=== PATIENT | female | born 1940 | race African-American/Black ===

== ENCOUNTER 2017-08-24 00:09 | Observation (INO) | payer MEDICARE, MEDICAID ==
[2017-08-24 01:11] LABS: Hemoglobin 10.9 g/dL (12.0-16.0); Mean Corpuscular HGB CONC 31.8 g/dL (32.0-36.0); Mean Corpuscular Hemoglobin 22.8 pg (27.0-31.0); Mean Corpuscular Volume 71.8 fl (81.0-99.0); Mean Platelet Volume 9.8 fL (7.4-10.4); Platelet Count 306 thou/uL (130-400); RBC Distribution Width 16.1 % (11.5-14.5); Red Blood Cell (RBC) Count 4.76 mill/uL (4.20-5.40); White Blood Cell (WBC) Count 9.6 thou/uL (4.8-10.8)
[2017-08-24 01:20] LABS: ALT (SGPT) 11 U/L (8-55); AST (SGOT) 15 U/L (5-34); Albumin 4.3 g/dL (3.4-4.8); Alkaline Phosphatase 69 U/L (40-150); Anion Gap 12 mmol/L (10-20); BUN (Urea Nitrogen) 5 mg/dL (9.8-20.1); Bilirubin, Total 0.4 mg/dL (0.2-1.2); Calc. Creatinine Clearance 0 mL/min (70-130); Calcium 8.9 mg/dL (7.8-10.44); Carbon Dioxide 28 mmol/L (23-31); Chloride 100 mmol/L (98-107); Estimated GFR-MDRD Greater than 90; Globulin 2.8 g/dL (2.4-3.5); Glucose 144 mg/dL (83-110); Potassium 3.6 mmol/L (3.5-5.1); Protein, Total 7.1 g/dL (6.0-8.3); Sodium 136 mmol/L (136-145)
[2017-08-24 01:25] LABS: CKMB 1.8 ng/mL (0-6.6); Troponin I Less than 0.010 ng/mL (< 0.028)
[2017-08-24 01:26] LABS: #Basophils 0.2 thou/uL (0.0-0.2); #Lymphocytes 2.8 thou/uL (1.20-3.40); #Monocytes 0.7 thou/uL (0.11-0.59); #Neutrophils 5.9 thou/uL (1.40-6.50); %Basophils 1.7 % (0.0-1.0); %Eosinophils 0.3 % (0.0-10.0); %Lymphocytes 29.5 % (21.0-51.0); %Monocytes 7.4 % (0.0-10.0); %Neutrophils 61.1 % (42.0-75.0); Hypochromia SLIGHT = 6-15 cells (100X) (0-5/hpf); MDiff Complete? YES; Microcytosis SLIGHT = 6-15 cells (100X) (0-5/hpf); Target Cells SLIGHT = 2-5 cells (100X) (0-1/hpf)
[2017-08-24] MEDS ORDERED: Nitroglycerin 2% Ointment 1 INCH/1 GM Packet ONE (02:30)
[2017-08-24] MEDS ORDERED: Ondansetron HCl/PF 4 MG/2 ML Vial IVP PRN (04:08)
[2017-08-24] MEDS ORDERED: Acetaminophen 325 MG TAB PO PRN ×2 (04:08→08:42)
[2017-08-24] MEDS ORDERED: Ondansetron ODT 4 MG TAB SL PRN (04:08)
[2017-08-24 05:50] LABS: Troponin I 0.012 ng/mL (< 0.028)
[2017-08-24] MEDS: Furosemide 40 MG/4 ML VIAL SLOW IVP SCH ×2 (06:04→14:07)
[2017-08-24 07:55] LABS: Troponin I 0.022 ng/mL (< 0.028)
[2017-08-24] MEDS ORDERED: Aspirin 325 MG TAB PO SCH (08:00)
--- NOTE | 2017-08-24 08:35 | RAD ---
CHEST 1 VIEW: HISTORY: A 77-year-old female with palpitations and shortness of breath for 1 hour. COMPARISON: 12/10/16. FINDINGS: Monitor leads overlie the chest. Atherosclerosis of the aorta. Old granulomatous disease. No confl uent pneumonia, overt edema, or pleural effusion. IMPRESSION: Stable mild chronic changes. No acute intrathoracic disease. POS: [facility]
[2017-08-24] MEDS ORDERED: Bisacodyl 5 MG TAB PO PRN (08:42)
[2017-08-24] MEDS ORDERED: Acetaminophen 650 MG Suppository PR PRN (08:42)
[2017-08-24] MEDS ORDERED: HumaLOG 300 UNITS/3 ML VIAL SC PRN (08:46)
[2017-08-24] MEDS ORDERED: Dextrose 50% Abboject 50 ML SYRINGE SLOW IVP PRN (08:46)
[2017-08-24] MEDS ORDERED: Dextrose 5% in Water 1,000 ML IV PRN (08:46)
[2017-08-24] MEDS ORDERED: PROVENTIL INHALER 6.7 G (200 INHALATIONS) INH PRN (08:47)
[2017-08-24] MEDS ORDERED: Acetaminophen 500 MG TAB PO PRN (08:47)
[2017-08-24] MEDS ORDERED: Nitroglycerin 0.4 MG TAB (25 Tab Bottle) SL PRN (08:47)
[2017-08-24] MEDS ORDERED: Albuterol Sulfate 2.5 mg/3 ml Neb NEB PRN (08:47)
[2017-08-24] MEDS ORDERED: Loratadine 10 MG TAB PO PRN (08:47)
[2017-08-24] MEDS ORDERED: Estradiol 0.01% Vaginal Cream 42.5 gm Tube VAG PRN (08:47)
[2017-08-24] MEDS ORDERED: Calcium Carbonate + Vit D 1 TAB PO SCH (09:00)
[2017-08-24] MEDS ORDERED: Azelastine 137 MCG/Spray 30 ML NS SCH (09:00)
[2017-08-24] MEDS ORDERED: Meclizine HCl 12.5 MG TAB PO SCH (09:00)
[2017-08-24] MEDS ORDERED: Enoxaparin Sodium 40 MG/0.4 ML SYRINGE SC SCH (09:00)
[2017-08-24] MEDS ORDERED: Nitroglycerin 2% Ointment 1 INCH/1 GM Packet TOP SCH (10:00)
[2017-08-24] MEDS ORDERED: Aggrenox 200-25mg CAP PO SCH ×2 (11:00→21:00)
[2017-08-24] MEDS ORDERED: Gabapentin 100 MG CAP PO SCH ×2 (12:00→21:00)
--- NOTE | 2017-08-24 12:57 | HP ---
PRIMARY CARE PHYSICIAN: Giovanny Peguero M.D. CHIEF COMPLAINT: Palpitations. HISTORY OF PRESENT ILLNESS: Ms. Pizarro is a pleasant 77-year-old lady who was seen at [facility] on 08/24/2017. She reports that she was woken up from her sleep around 2310 hours last night because of palpitations . She reports shortness of breath accompanying the palpitations. She also reports chest discomfort from the palpitations. She is unable to describe the chest discomfort further. She reports that the palpitations continued for several hours and resolved after she came to the emergency room. REVIEW OF SYSTEMS: The following complete review of systems was negative, unless otherwise mentioned in the HPI or below: Constitutional: Weight loss or gain, ability to conduct usual activities. Skin: Rash, itching. Eyes: Double vision, pain. ENT/Mouth: Nose bleeding, neck stiffness, pain, tenderness. Cardiovascular: Palpitations, dyspnea on exertion, orthopnea. Respiratory: Shortness of breath, wheezing, cough, hemoptysis, fever or night sweats. Gastrointestinal: Poor appetite, abdominal pain, heartburn, nausea, vomiting, constipation, or diarr hea. Genitourinary: Urgency, frequency, dysuria, nocturia. Musculoskeletal: Pain, swelling. Neurologic/Psychiatric: Anxiety, depression. Allergy/Immunologic: Skin rash, bleeding tendency. PAST MEDICAL HISTORY: Significant for hypertension, dyslipidemia, Alzheimer's dementia, cerebrovascu lar accident, peripheral vascular disease, peripheral neuropathy, chronic normocytic anemia, osteoart hritis, asthma, TIA and chronic diastolic heart failure. PAST SURGICAL HISTORY: Appendectomy and cataract surgery. PSYCHIATRIC HISTORY: Anxiety and depression. SOCIAL HISTORY: The patient denies tobacco use, alcohol use or recreational drug use. FAMILY HISTORY: Significant for diabetes mellitus in her mother. ALLERGIES: CYMBALTA, LATEX, NATURAL RUBBER, PREDNISONE, and TRAMADOL. CURRENT MEDICATIONS: Include Tylenol Extra Strength 500 mg daily, albuterol 2.5 mg nebulizers every 6 hours as needed, amlodipine 5 mg at bedtime, Aggrenox 25/200 mg 1 capsule 2 times a day, atorvastat in 20 mg at bedtime, azelastine 1 spray to each naris daily, Caltrate 600 one tablet daily, Dexilant 60 mg at bedtime, Flonase nasal spray 1-2 sprays to each nostril daily, Advair 1 puff 2 times a day, Lasix 40 mg daily 3 times a week, gabapentin 100 mg 3 times a day and 200 mg at bedtime, loratadine 1 0 mg daily, meclizine 25 mg daily, Singulair 10 mg at bedtime, Nitrostat p.r.n., nortriptyline 10 mg at bedtime, Pataday 1 drop to each eye 2 times a day, MiraLax 17 grams daily, triamcinolone 1 spray t o each naris daily. PHYSICAL EXAMINATION: GENERAL: On examination, Ms. Pizarro is awake and alert, not in acute distress. VITAL SIGNS: Blood pressure is 155/67, pulse is 67. She is breathing at rate of 16 and saturating 9 6% on room air. She is afebrile. EYES: No scleral icterus. No conjunctival pallor. ENT: Moist mucosal membranes, no oropharyngeal erythema or exudates. NECK: Supple, nontender, normal range of movement. Trachea is midline. RESPIRATORY: Accessory muscles of breathing are not active. Chest wall movements are symmetric bila terally. LUNGS: Clear to auscultation without wheeze, rhonchi or crepitations. CARDIOVASCULAR: S1 and S2 are heard, regular. LUNGS: Peripheral pulses palpable. No carotid bruit, no pericardial rub. ABDOMEN: Soft, nontender, bowel sounds are heard. No hepatomegaly, no splenomegaly. NEUROLOGIC: Cranial nerves II-XII are intact. Deep tendon reflexes are 2+. MUSCULOSKELETAL: Power is 5/5 in all 4 extremities. SKIN: No rashes or subcutaneous nodules. PSYCHIATRIC: Normal mood, normal affect, patient is oriented to person, place and time. LYMPHATIC: No cervical lymphadenopathy. IMAGING DATA AND LABORATORY DATA: Ms. Pizarro's labs and investigations were reviewed. I reviewed he r electrocardiogram, which shows normal sinus rhythm, no ST changes to suggest an acute coronary synd dale. I also reviewed her chest x-ray, which does not show any pulmonary infiltrates. She has a nor mal white count, microcytic anemia with hemoglobin 10.9, normal platelet count, D-dimer less than 0.2 7. Unremarkable comprehensive metabolic profile, normal BNP of 10.9 and troponin I that is negative x3. ASSESSMENT AND PLAN: Ms. Pizarro is a pleasant 77-year-old lady who was seen at [facility] on 04/23/2018. Her problem list includes: 1. Palpitations: No arrhythmia detected on telemetry monitoring at this point. We will check TSH t o rule out hyperthyroidism. We will continue to monitor on telemetry. 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 2. Chest discomfort: Patient is unable to describe this chest discomfort. She reports having her l ast stress test a year ago. We will obtain a stress test during this hospitalization. 3. Diabetes mellitus: Accu-Cheks, insulin sliding scale, continue home medications. 4. Congestive heart failure: Stable, continue furosemide. 5. Hypertension: Monitor vital signs and titrate antihypertensives as needed. 6. Dyslipidemia: Continue home medications including statin. Many thanks for allowing me to participate in your patient's care. Please feel free to contact me wi th any questions or concerns. LEVEL OF RISK: High. LEVEL OF COMPLEXITY: High.
[2017-08-24 13:22] VITALS: TEMP 97.6
[2017-08-24] MEDS ORDERED: Regadenoson 0.4 MG/5 ML SYRINGE ONE (13:47)
--- NOTE | 2017-08-24 15:54 | NM ---
CARDIAC SPECT WITH EF AND WALL MOTION: HISTORY: A 77-year-old female with palpitations, chest discomfort, as well as shortness of breath. History of CT, congestive heart failure, hyperlipidemia, diabetes mellitus, hypertension, peripheral vascular d isease, and asthma. A LexiScan sestamibi study is performed. The patient was injected with 28.3 mCi Technetium 99m sestamibi intravenously for stress images the p atient and 10.0 mCi Technetium 99m sestamibi intravenously for resting images. Multiple SPECT images in the short axis, vertical long axis, and horizontal long axis demonstrate no scan evidence for infarct or ischemia. TID 1.09. LHR 0.34. EDV 55 mL. EF is 82%. MYOCARDIAL PERFUSION WALL MOTION: Wall motion is normal. IMPRESSION: No scan evidence for overt infarct or ischemia. POS: [facility]
[2017-08-24 16:06] VITALS: BP 142/66
[2017-08-24] MEDS ORDERED: Mometasone/Formoterol 120 PUFF INHALER INH SCH (18:30)
[2017-08-24] MEDS ORDERED: Amlodipine 5 MG TAB PO SCH (21:00)
[2017-08-24] MEDS ORDERED: Atorvastatin Calcium 20 MG TAB PO SCH (21:00)
[2017-08-24] MEDS ORDERED: Nortriptyline 10 MG CAP PO SCH (21:00)
[2017-08-24] MEDS ORDERED: Montelukast Sodium 10 mg Tablet PO SCH (21:00)
[2017-08-24] MEDS ORDERED: Ketotifen Fumarate 0.025% Ophth Soln 5 ml Bottle EA EYE SCH (21:00)
--- NOTE | 2017-08-25 01:22 | DIS ---
PRIMARY CARE PHYSICIAN: Giovanny Peguero M.D. DATE OF ADMISSION: 08/24/2017 DATE OF DISCHARGE: 08/24/2017 DISCHARGE DIAGNOSES: 1. Chest discomfort, resolved. 2. Palpitations, resolved. HOSPITAL COURSE: Ms. Pizarro is a pleasant 77-year-old lady who was admitted to [facility] on 08/24/2017 for palpitations and chest discomfort. Please refer to my history and pro brock note from 08/24/2017 for further information. She had normal troponins. She had a normal TSH. She did not have a recurrence of chest discomfort or palpitations. There were no arrhythmias on te lemetry monitoring. She had a nuclear stress test, which did not reveal any evidence for infarct or ischemia. Her left ventricular ejection fraction was 82%. She is being discharged home in a stable condition. She is advised to follow up with her primary car e physician as well as with her anesthetist. Many thanks for allowing me to participate in your patient's care. Please feel free to contact me wi th any questions or concerns. DISCHARGE DESTINATION: Home.
[2017-08-25] MEDS ORDERED: Fluticasone Propionate Nasal Spray 16 gm Bottle NASAL SCH (09:00)
[2017-08-25] MEDS ORDERED: Polyethylene Glycol 3350 17 GM Packet PO SCH (09:00)
[2017-08-26] MEDS ORDERED: Furosemide 40 MG TAB PO SCH (09:00)
== END 2017-08-24 16:56 | disposition home or self-care (01) ==
LOC: ERS 00:09 → 2SW 02:45
PROVIDERS: ADMIT Hospitalist; ATTEND Hospitalist
DX: R07.89 Other chest pain (principal); R00.2 Palpitations; E78.5 Hyperlipidemia, unspecified; G30.9 Alzheimer's disease, unspecified; F02.80 Dementia in other diseases classified elsewhere, unspecified severity, without behavioral disturbance, psychotic disturbance, mood disturbance, and anxiety; D64.9 Anemia, unspecified; M19.90 Unspecified osteoarthritis, unspecified site; J45.909 Unspecified asthma, uncomplicated; I11.0 Hypertensive heart disease with heart failure; I50.32 Chronic diastolic (congestive) heart failure; E11.51 Type 2 diabetes mellitus with diabetic peripheral angiopathy without gangrene; E11.42 Type 2 diabetes mellitus with diabetic polyneuropathy; Z79.02 Long term (current) use of antithrombotics/antiplatelets; Z79.51 Long term (current) use of inhaled steroids; Z79.890 Hormone replacement therapy; Z79.899 Other long term (current) drug therapy; Z88.5 Allergy status to narcotic agent; Z88.8 Allergy status to other drugs, medicaments and biological substances; Z91.040 Latex allergy status; Z98.49 Cataract extraction status, unspecified eye; Z90.49 Acquired absence of other specified parts of digestive tract; Z86.73 Personal history of transient ischemic attack (TIA), and cerebral infarction without residual deficits
CPT/HCPCS: 71045; 78452; 82553; 82962; 83880; 84484 ×2; 85379; 93005; 93017; 94760; 96374; 96376; 99285; A9500; G0378; 36415; 36416; 80053; 84443; 85025; J1940; J2785

== ENCOUNTER 2017-09-15 01:43 | Emergency (ER) | payer MEDICARE, MEDICAID ==
[2017-09-15 02:20] LABS: #Basophils 0.1 thou/uL (0.0-0.2); #Eosinphils 0.1 thou/uL (0.0-0.7); #Lymphocytes 2.5 thou/uL (1.20-3.40); #Monocytes 0.6 thou/uL (0.11-0.59); #Neutrophils 5.6 thou/uL (1.40-6.50); %Basophils 0.9 % (0.0-1.0); %Eosinophils 0.6 % (0.0-10.0); %Lymphocytes 28.4 % (21.0-51.0); %Neutrophils 63.1 % (42.0-75.0); Hemoglobin 10.8 g/dL (12.0-16.0); Mean Corpuscular HGB CONC 32.4 g/dL (32.0-36.0); Mean Corpuscular Hemoglobin 23.1 pg (27.0-31.0); Mean Corpuscular Volume 71.3 fl (81.0-99.0); Mean Platelet Volume 8.9 fL (7.4-10.4); Platelet Count 325 thou/uL (130-400); RBC Distribution Width 15.8 % (11.5-14.5); Red Blood Cell (RBC) Count 4.66 mill/uL (4.20-5.40); White Blood Cell (WBC) Count 8.9 thou/uL (4.8-10.8)
[2017-09-15 02:42] LABS: ALT (SGPT) 9 U/L (8-55); AST (SGOT) 16 U/L (5-34); Albumin 4.5 g/dL (3.4-4.8); Alkaline Phosphatase 61 U/L (40-150); Anion Gap 9 mmol/L (10-20); BUN (Urea Nitrogen) 8 mg/dL (9.8-20.1); Bilirubin, Total 0.4 mg/dL (0.2-1.2); CK (CPK) 127 U/L (29-168); Calc. Creatinine Clearance 0 mL/min (70-130); Calcium 9.5 mg/dL (7.8-10.44); Carbon Dioxide 32 mmol/L (23-31); Chloride 98 mmol/L (98-107); Estimated GFR-MDRD 87; Globulin 2.8 g/dL (2.4-3.5); Glucose 121 mg/dL (83-110); Potassium 3.9 mmol/L (3.5-5.1); Protein, Total 7.3 g/dL (6.0-8.3); Sodium 135 mmol/L (136-145)
[2017-09-15 02:52] LABS: CKMB 1.8 ng/mL (0-6.6); Troponin I Less than 0.010 ng/mL (< 0.028)
--- NOTE | 2017-09-15 08:36 | RAD ---
PORTABLE CHEST 1 VIEW: Date: 09/15/17 Time: 0209 hours HISTORY: Dyspnea. Dizziness. Tachycardia. FINDINGS: Comparison made with exam of 09/13/17. The heart size is normal. The aorta is tortuous. The lungs are expanded without focal areas of consol idation, pneumothorax, or pleural effusions. IMPRESSION: No radiographic evidence of acute cardiopulmonary process. POS: [facility]
--- NOTE | 2017-09-21 15:36 | EKG ---
Test Reason : Blood Pressure : / mmHG Vent. Rate : 074 BPM Atrial Rate : 074 BPM P-R Int : 142 ms QRS Dur : 072 ms QT Int : 384 ms P-R-T Axes : 067 004 046 degrees QTc Int : 426 ms Normal sinus rhythm Normal ECG Confirmed by DELMIS MCCLAIN, REKHA Lyles ([id number]), magazine editor MIRNA BLAND ([id number]) on 09/21/2017 3:36:36 PM Referred By: Confirmed By:REKHA BENITES MD
== END 2017-09-15 03:09 | disposition home or self-care (01) ==
LOC: ERS 01:43
DX: R00.2 Palpitations (principal); E11.40 Type 2 diabetes mellitus with diabetic neuropathy, unspecified; E78.5 Hyperlipidemia, unspecified; M19.90 Unspecified osteoarthritis, unspecified site; J45.909 Unspecified asthma, uncomplicated; F41.9 Anxiety disorder, unspecified; F32.9 Major depressive disorder, single episode, unspecified; Z87.891 Personal history of nicotine dependence; Z79.899 Other long term (current) drug therapy; Z86.73 Personal history of transient ischemic attack (TIA), and cerebral infarction without residual deficits
CPT/HCPCS: 36415; 71045; 80053; 82553; 83880; 84484; 85025; 93005

== ENCOUNTER 2018-01-16 08:59 | Outpatient (CLI) | payer MEDICARE, MEDICAID ==
--- NOTE | 2018-01-16 10:38 | RAD ---
TWO VIEWS CHEST: Comparison: 01-17-17 History: Dyspnea. FINDINGS: Two views of the chest shows normal sized cardiomediastinal silhouette with atherosclerotic calcific ations in the aorta. There is no evidence of consolidation, mass, or pleural effusion. The bones are unremarkable. IMPRESSION: No evidence of acute cardiopulmonary disease. POS: [facility]
== END 2018-01-16 09:00 | disposition home or self-care (01) ==
LOC: RAD 08:59
PROVIDERS: ATTEND Internal Medicine Critical Care Medicine
DX: R06.00 Dyspnea, unspecified (principal)
CPT/HCPCS: 71046

== ENCOUNTER 2018-12-10 06:00 | Emergency (ER) | payer MEDICARE, MEDICAID ==
[2018-12-10] MEDS ORDERED: Ondansetron PF 4 MG/2 ML Vial ONE (06:39)
[2018-12-10] MEDS ORDERED: Morphine 4 MG/ML VIAL ONE (06:39)
[2018-12-10 06:48] LABS: #Basophils 0.1 thou/uL (0.0-0.2); #Lymphocytes 1.9 thou/uL (1.20-3.40); #Monocytes 0.8 thou/uL (0.11-0.59); #Neutrophils 8.4 thou/uL (1.40-6.50); %Basophils 0.8 % (0.0-1.0); %Eosinophils 0.4 % (0.0-10.0); %Lymphocytes 16.8 % (21.0-51.0); Mean Corpuscular HGB CONC 31.8 g/dL (32.0-36.0); Mean Corpuscular Hemoglobin 22.3 pg (27.0-31.0); Mean Corpuscular Volume 70.2 fL (78.0-98.0); Mean Platelet Volume 8.6 fL (7.4-10.4); Platelet Count 364 thou/uL (130-400); RBC Distribution Width 15.7 % (11.5-14.5); Red Blood Cell (RBC) Count 4.93 mill/uL (4.20-5.40); White Blood Cell (WBC) Count 11.1 thou/uL (4.8-10.8)
[2018-12-10 07:01] LABS: ALT (SGPT) 8 U/L (8-55); AST (SGOT) 18 U/L (5-34); Albumin 4.6 g/dL (3.4-4.8); Alkaline Phosphatase 61 U/L (40-150); Anion Gap 14 mmol/L (10-20); BUN (Urea Nitrogen) 8 mg/dL (9.8-20.1); Bilirubin, Total 0.6 mg/dL (0.2-1.2); Calc. Creatinine Clearance 0 mL/min (70-130); Calcium 9.7 mg/dL (7.8-10.44); Carbon Dioxide 27 mmol/L (23-31); Chloride 92 mmol/L (98-107); Estimated GFR-MDRD 80; Glucose 111 mg/dL (83-110); Lipase 5 U/L (8-78); Potassium 4.3 mmol/L (3.5-5.1); Protein, Total 7.6 g/dL (6.0-8.3); Sodium 129 mmol/L (136-145)
[2018-12-10 07:22] LABS: Hypochromia SLIGHT = 6-15 cells (100X) (0-5/hpf); Lymphocytes 29 % (21-51); MDiff Complete? YES; Microcytosis SLIGHT = 6-15 cells (100X) (0-5/hpf); Monocytes 3 % (0-10); Neutrophil 67 % (42-75); Platelet Morphology Comment Appears Adequate; Polychromasia SLIGHT = 2-3 cells (100X) (0-2/hpf); Reactive Lymphocytes 1 % (0-10)
--- NOTE | 2018-12-10 07:44 | ULT ---
GALLBLADDER ULTRASOUND: CLINICAL HISTORY: Pain. FINDINGS: No focal hepatic lesion. No acute gallbladder pathology. Navarro sign is reported as negative. The c ommon duct is normal at 4 mm. There is no ascites. IMPRESSION: No acute gallbladder pathology. POS: [facility]
--- NOTE | 2018-12-10 07:58 | RAD ---
CHEST ONE VIEW: HISTORY: Cough. COMPARISON: 09/15/2017 FINDINGS: Heart size is within normal limits. Old granulomatous disease. No confluent pneumonia, overt edema, or pleural effusion. IMPRESSION: 1. No acute intrathoracic disease. 2. Old granulomatous disease. 3. Atherosclerosis of the aorta. POS: [facility]
[2018-12-10 08:03] LABS: Bilirubin Negative (Negative); Blood, Urine Negative (Negative); Clarity CLEAR (Clear); Glucose, Urine (Dipstick) Negative (Negative); Leukocyte Small (Negative); Nitrite Negative (Negative); Protein, Urine (Dipstick) Negative (Neg-Trace); Specific Gravity, Urine 1.006 (1.002-1.036); Urobilinogen 0.2 mg/dL (0.2-1.0)
[2018-12-10 08:05] LABS: Bacteria/HPF None Seen HPF (None Seen); Hyaline Casts/LPF 0-3 HYALINE CAST LPF (0-3 Hyaline); RBC/HPF 0-3 HPF (0-3); Squamous Epithelial None Seen HPF (0-3); WBC/HPF 0-3 HPF (0-3)
--- NOTE | 2018-12-10 08:30 | CT ---
CT abdomen with contrast CT pelvis with contrast: DATE: 12/10/2018 HISTORY: 78-year-old female with right upper quadrant abdominal pain COMPARISON: Noncontrast CT 03/12/2015 TECHNIQUE: IV injection of iodinated contrast media:Administered Oral contrast media:Not administered FINDINGS: Again noted is the large atheromatous plaque in the proximal abdominal aorta at the level of the righ t renal artery origin and slightly inferior to the SMA takeoff, causing approximately 60-75% stenosis of the lumen Lung bases demonstrate no consolidation or pleural effusion. No major pathology of liver, kidneys, adrenals, pancreas, spleen, or urinary bladder. Appendix is latrell gically absent by history. Large amount of stool in the transverse colon and ascending colon, including hepatic flexure. Sigmoid colon and descending colon are decompressed. No signs of diverticu litis. No small bowel dilation. No pneumoperitoneum or ascites. No gallbladder mural thickening or pericholecystic edema. No major interval change. IMPRESSION: 1. Moderately large volume of colonic stool. 2. High-grade stenosis of proximal abdominal aorta due to large, calcified atheromatous plaque. 3. Status post appendectomy. 4. Otherwise no acute findings
[2018-12-10] MEDS ORDERED: ISOVUE-370 76%-LOCM 1 ML ONE (11:43)
== END 2018-12-10 09:00 | disposition home or self-care (01) ==
LOC: ERS 06:00
DX: R10.11 Right upper quadrant pain (principal); Z86.73 Personal history of transient ischemic attack (TIA), and cerebral infarction without residual deficits; E11.9 Type 2 diabetes mellitus without complications; E78.5 Hyperlipidemia, unspecified; I11.0 Hypertensive heart disease with heart failure; I50.9 Heart failure, unspecified; J45.909 Unspecified asthma, uncomplicated; F41.9 Anxiety disorder, unspecified; F32.9 Major depressive disorder, single episode, unspecified; Z87.891 Personal history of nicotine dependence; Z79.899 Other long term (current) drug therapy; Z79.82 Long term (current) use of aspirin; Z79.51 Long term (current) use of inhaled steroids
CPT/HCPCS: 71045; 74177; 76705; 80053; 81003; 81015; 83690; 83880; 84484; 85025; 93005; 96374; 96375; J2270; J2405; Q9966

== ENCOUNTER 2019-01-03 15:17 | Inpatient (IN) | payer MEDICARE, MEDICAID ==
--- NOTE | 2019-01-03 16:08 | RAD ---
SINGLE VIEW OF THE CHEST: 01/03/19 COMPARISON: 01/02/19 HISTORY: Sepsis with fever and hypotension. FINDINGS: Single view of the chest shows a normal sized cardiomediastinal silhouette with atherosclerotic calci fications in the aorta. There is obscurity of the left hemidiaphragm which likely represents either atelectasis or an infiltrate in the left lower lobe. IMPRESSION: Left lower lobe atelectasis versus infiltrate. POS: [facility]
[2019-01-03] MEDS ORDERED: Acetaminophen 500 MG TAB ONE (16:15)
[2019-01-03 16:16] LABS: Hemoglobin 10.5 g/dL (12.0-16.0); Mean Corpuscular HGB CONC 33.4 g/dL (32.0-36.0); Mean Platelet Volume 8.9 fL (7.4-10.4); Platelet Count 274 thou/uL (130-400); RBC Distribution Width 15.5 % (11.5-14.5); Red Blood Cell (RBC) Count 4.54 mill/uL (4.20-5.40); White Blood Cell (WBC) Count 19.6 thou/uL (4.8-10.8)
[2019-01-03 16:22] LABS: Bilirubin Negative (Negative); Blood, Urine Large (Negative); Clarity CLEAR (Clear); Glucose, Urine (Dipstick) Negative (Negative); Leukocyte Negative (Negative); Nitrite Negative (Negative); Protein, Urine (Dipstick) Trace mg/dL (Neg-Trace); Specific Gravity, Urine 1.014 (1.002-1.036); pH, Urine 5.5 (5.0-9.0)
[2019-01-03 16:24] LABS: Bacteria/HPF None Seen HPF (None Seen); Hyaline Casts/LPF 4-6 HYALINE CAST LPF (0-3 Hyaline); Pathc Cast-AUWi Flag 0.68 (0-2.49); RBC/HPF 0-3 HPF (0-3); Squamous Epithelial 0-3 HPF (0-3); WBC/HPF 0-3 HPF (0-3)
[2019-01-03 16:30] LABS: Anisocytosis SLIGHT = 6-15 cells (100X) (0-5/hpf); Band 6 % (5-11); Basophilic Stippling SLIGHT = 1-2 cells (100X) (None Seen); Hypochromia SLIGHT = 6-15 cells (100X) (0-5/hpf); Lymphocytes 7 % (21-51); MDiff Complete? YES; Microcytosis SLIGHT = 6-15 cells (100X) (0-5/hpf); Monocytes 1 % (0-10); Neutrophil 86 % (42-75); Ovalocytes SLIGHT = 2-5 cells (100X) (0-1/hpf); Platelet Morphology Comment Appears Adequate; Polychromasia SLIGHT = 2-3 cells (100X) (0-2/hpf); Target Cells SLIGHT = 2-5 cells (100X) (0-1/hpf); Tear Drops SLIGHT = 2-5 cells (100X) (0-1/hpf)
[2019-01-03 16:37] LABS: Renal Epithelial 0-3 HPF (0-3); Transitional Epithelial 0-3 HPF (0-3)
[2019-01-03 17:09] LABS: ALT (SGPT) 20 U/L (8-55); AST (SGOT) 36 U/L (5-34); Albumin 4.2 g/dL (3.4-4.8); Alkaline Phosphatase 69 U/L (40-150); Anion Gap 15 mmol/L (10-20); BUN (Urea Nitrogen) 21 mg/dL (9.8-20.1); Bilirubin, Total 1.1 mg/dL (0.2-1.2); Calc. Creatinine Clearance 0 mL/min (70-130); Calcium 9.4 mg/dL (7.8-10.44); Carbon Dioxide 23 mmol/L (23-31); Chloride 93 mmol/L (98-107); Estimated GFR-MDRD 25; Globulin 3.1 g/dL (2.4-3.5); Glucose 115 mg/dL (83-110); Potassium 5.1 mmol/L (3.5-5.1); Protein, Total 7.3 g/dL (6.0-8.3); Sodium 126 mmol/L (136-145)
[2019-01-03] MEDS ORDERED: Piperacillin/Tazobactam 4.5 GM VIAL ONE (18:02)
[2019-01-03] MEDS ORDERED: Ondansetron PF 4 MG/2 ML Vial IVP PRN ×2 (19:37→22:04)
[2019-01-03] MEDS ORDERED: Ondansetron ODT 4 MG TAB SL PRN (19:37)
[2019-01-03 20:22] VITALS: BMI 25.3
[2019-01-03 21:22] LABS: Lactic Acid 0.9 mmol/L (0.5-2.2)
[2019-01-03] MEDS ORDERED: hydrALAZINE 20 MG/ML VIAL SLOW IVP PRN (22:04)
[2019-01-03] MEDS ORDERED: Ondansetron ODT 4 MG TAB PO PRN (22:04)
[2019-01-03] MEDS ORDERED: Benzonatate 100 MG CAP PO PRN (22:04)
[2019-01-03] MEDS ORDERED: Mometasone/Formoterol 120 PUFF INHALER INH SCH (23:00)
[2019-01-03] MEDS: Sodium Chloride 0.9% 1,000 ML IV SCH (23:26)
[2019-01-04] MEDS: Acetaminophen 500 MG TAB PO PRN ×2 (04:09→22:03)
--- NOTE | 2019-01-04 04:24 | HP ---
PRIMARY CARE PROVIDER: Dr. Giovanny Peguero. CHIEF COMPLAINT: Cough, shortness of breath, and passing out. HISTORY OF PRESENT ILLNESS: This is a 78-year-old female, who presented to [facility] Emergency Department on 01/02/2019, complaining of increased shortness of breath and was apparently diagnosed with COPD exacerbation and released back home. The patient states she went back home with increased cough, congestion, body aches, fever, and general weakness. The patient also complained of pain in her chest with deep inspiration. The patient felt very weak and went to her bedroom, where apparently she fell across her bed and was discovered by her brother. The patient states she only passed out for a few seconds and came through without complication. The patient denied any new medication exposure, family members with similar symptoms, recent travel history, unilateral weakness, or increasing lower extremity edema. The patient states her last episode of pneumonia was in 2009, and she states her pneumonia vaccination is current. The patient does relate a history of asthma, for which she intermittently takes bronchodilator treatments at home in addition to Advair Diskus inhaler. The patient denies any home use of oxygen, any dietary or medication noncompliance. In the emergency room, the patient underwent general evaluation including chest imaging showing left lower lobe infiltrate. The patient also met sepsis criteria and was placed on Levaquin and Zosyn in addition to intravenous normal saline x500 mL. The patient also received acetaminophen and was transferred to the medical floor for further evaluation. PAST MEDICAL HISTORY: 1. Hypertension. 2. Dyslipidemia. 3. History of TIA. 4. Peripheral vascular disease. 5. Peripheral neuropathy. 6. Chronic normocytic anemia. 7. Osteoarthritis. 8. Asthma. 9. Chronic diastolic dysfunction with preserved ejection fraction of 55% to 60%. PAST SURGICAL HISTORY: 1. Status post appendectomy. 2. Status post cataract removal. PSYCHIATRIC HISTORY: Anxiety and depression. FAMILY HISTORY: Positive for diabetes mellitus in her mother. SOCIAL HISTORY: Resides in [place], [place], in a longterm community. Lives independently, but does receive home health services with [facility] [place]. Ambulates with a cane in the home and a four-wheeled walker out of the home. No recent falls per patient report. No current tobacco, alcohol, or illicit drug use. Remote tobacco use. REVIEW OF SYSTEMS: CONSTITUTIONAL: Negative for weight loss or gain, ability to conduct usual activities. SKIN: Negative for rash, itching. EYES: Negative for double vision, pain. ENT/MOUTH: Negative for nose bleeding, neck stiffness, pain, tenderness. CARDIOVASCULAR: Negative for palpitations, dyspnea on exertion, orthopnea. RESPIRATORY: Negative for wheezing, hemoptysis, fever or night sweats. GASTROINTESTINAL: Negative for poor appetite, abdominal pain, heartburn, nausea, vomiting, constipation, or diarrhea. GENITOURINARY: Negative for urgency, frequency, dysuria, nocturia. MUSCULOSKELETAL: Negative for pain, swelling. NEUROLOGIC/PSYCHIATRIC: Negative for anxiety, depression. ALLERGY/IMMUNOLOGIC: Negative for skin rash, bleeding tendency. ALLERGIES: 1. DONEPEZIL. 2. DULOXETINE. 3. HYDROCHLOROTHIAZIDE. 4. HYDROCODONE. 5. LATEX. 6. PREDNISONE. 7. TRAMADOL. PHYSICAL EXAMINATION: VITAL SIGNS: On admission, blood pressure 113/61, pulse 82, respiratory rate 16, temperature 99.6 degrees Fahrenheit, O2 saturation 92% on room air. GENERAL APPEARANCE: This is a 78-year-old female, alert and oriented x3, pleasant, in no acute distress. HEENT: Pupils are equal, round, reactive to light and accommodation. Extraocular muscles are intact. No scleral icterus. No conjunctival injection. Nares patent. OP is clear. Teeth in fair repair. NECK: Supple. No cervical adenopathy. No thyromegaly. No carotid bruits. No JVD appreciated. Cervical spine with full active and passive range of motion. No meningeal signs noted. CHEST: Diminished breath sounds in the bases bilaterally. Occasional rhonchi in the left lower lobe. CARDIOVASCULAR: S1 and S2 without noted murmur, rub, or gallop. ABDOMEN: Rounded, soft, nontender, and nondistended. Bowel sounds are positive in all 4 quadrants. There is no hepatosplenomegaly. No abdominal bruits. No rebound or guarding appreciated. EXTREMITIES: Warm and dry with fair turgor. No clubbing, cyanosis, or asymmetric edema appreciated. Pulses palpable distally at the dorsalis pedis, posterior tibial, and popliteal arteries bilaterally. Capillary refill less than 2 seconds. NEUROLOGIC: Cranial nerves 2 through 12 are grossly intact. No focal or lateralizing signs appreciated. PERTINENT LAB AND X-RAY FINDINGS: Sodium 126, potassium 5.1, chloride 93, CO2 of 23, BUN 21, creatinine 2.31, estimated GFR of 25, glucose 115. Lactic acid level ranged between 0.9 to 1.2, calcium 9.4, AST 36, ALT of 20, total bilirubin 1.1. CBC showed a white blood cell count of 19.6, hemoglobin 11, hematocrit 31, MCV 69, platelet count 274, with 86% neutrophils. Urinalysis showed blood with 0 to 3 rbc's per high-power field. Portable chest x-ray dated 01/03/2019 showed left lower lobe infiltrate with associated atelectasis. EKG dated 01/03/2019 by my interpretation shows sinus mechanism with heart rates in the 90s. Attenuated R-waves noted in the precordial leads. Left axis deviation noted. Isolated T-wave inversion in lead V3. ASSESSMENT AND PLAN: 1. Sepsis secondary to pneumonia. The patient will be admitted to the medical floor. The patient meeting sepsis criteria with leukocytosis, fever, with acute kidney injury. We will continue treatment as outlined. 2. We will continue intravenous normal saline 100 mL/h. Lactic acid level negative x2. 3. Bacterial pneumonia, left lower lobe, suspected gram-positive cocci. We will continue cefepime 2 g IV q.12 hours with additional Levaquin 500 mg IV daily. Bronchodilator therapy with DuoNeb. Mucolytics with Robitussin. Oxygen as needed to maintain O2 saturations greater than or equal to 90%. Confirm most recent pneumo vaccination prior to discharge. 4. Acute kidney injury. Continue intravenous normal saline at 100 mL/h. Avoid nephrotoxic agents and limit contrast exposure. Hold home Lasix. 5. Hyponatremia. Appears acute/subacute. We will continue intravenous normal saline at 100 mL/h. Serial sodium monitoring. 6. Chronic microcytic anemia. Appears stable when review of electronic medical record dating back to 2011. No current evidence to suggest acute blood loss. Repeat CBC in the a.m. and monitor hemoglobin trend. 7. Prophylaxis. SCDs while in bed. Pepcid 20 mg p.o. b.i.d. PT evaluation for functional assessment. CODE STATUS: Full. Surrogate medical decision maker is patient's brother. Job ID: [id number]
[2019-01-04 06:12] LABS: Band 15 % (5-11); Elliptocytes SLIGHT = 2-5 cells (100X) (0-1/hpf); Hemoglobin 9.4 g/dL (12.0-16.0); Hypochromia SLIGHT = 6-15 cells (100X) (0-5/hpf); Lymphocytes 5 % (21-51); MDiff Complete? YES; Mean Corpuscular HGB CONC 32.9 g/dL (32.0-36.0); Mean Corpuscular Hemoglobin 22.8 pg (27.0-31.0); Mean Corpuscular Volume 69.4 fL (78.0-98.0); Mean Platelet Volume 9.1 fL (7.4-10.4); Monocytes 5 % (0-10); Neutrophil 75 % (42-75); Platelet Count 246 thou/uL (130-400); Platelet Morphology Comment Appears Adequate; RBC Distribution Width 15.2 % (11.5-14.5); Red Blood Cell (RBC) Count 4.12 mill/uL (4.20-5.40); White Blood Cell (WBC) Count 18.4 thou/uL (4.8-10.8)
[2019-01-04 06:21] LABS: Anion Gap 16 mmol/L (10-20); BUN (Urea Nitrogen) 20 mg/dL (9.8-20.1); Calc. Creatinine Clearance 22 mL/min (70-130); Calcium 8.3 mg/dL (7.8-10.44); Carbon Dioxide 19 mmol/L (23-31); Chloride 98 mmol/L (98-107); Estimated GFR-MDRD 29; Glucose 90 mg/dL (83-110); Potassium 4.8 mmol/L (3.5-5.1); Sodium 128 mmol/L (136-145)
[2019-01-04] MEDS: Mometasone/Formoterol 120 PUFF INHALER INH SCH ×2 (06:44→19:01)
[2019-01-04] MEDS ORDERED: Sodium Chloride 0.65% Nasal 44 ML BOT EA NARE PRN (08:30)
[2019-01-04] MEDS ORDERED: Loratadine 10 MG TAB PO PRN (08:30)
[2019-01-04] MEDS ORDERED: Senokot S 8.6-50 MG TAB PO PRN (08:30)
[2019-01-04] MEDS ORDERED: Temazepam 15 MG CAP PO PRN (08:30)
[2019-01-04] MEDS ORDERED: Bisacodyl 10 MG SUPP PR PRN (08:30)
[2019-01-04] MEDS ORDERED: Loperamide HCl 2 MG CAP PO PRN (08:30)
[2019-01-04] MEDS ORDERED: Cepastat Lozenges 1 LOZ PO PRN (08:30)
[2019-01-04] MEDS ORDERED: Diabetic Tussin 200 MG/10 ML UDCUP PO PRN (08:30)
[2019-01-04] MEDS ORDERED: Meclizine HCl 12.5 MG TAB PO PRN (08:31)
[2019-01-04] MEDS ORDERED: Nitroglycerin 0.4 MG TAB (25 Tab Bottle) SL PRN (08:31)
[2019-01-04] MEDS ORDERED: Famotidine 20 MG TAB PO SCH (09:00)
[2019-01-04] MEDS: Aspirin 81 mg Enteric Coated Tablet PO SCH (09:05)
[2019-01-04] MEDS: Gabapentin 100 MG CAP PO SCH ×4 (09:05→20:24)
[2019-01-04] MEDS: Cefepime 2 GM in Sodium Chloride 0.9% 100 ML IVPB SCH ×2 (09:06→20:25)
[2019-01-04] MEDS: Polyethylene Glycol 3350 17 GM Packet PO SCH (09:08)
[2019-01-04] MEDS: Fluticasone Propionate Nasal Spray 16 gm Bottle NASAL SCH (09:09)
[2019-01-04] MEDS: Diltiazem HCl CD 300 mg Capsule PO SCH (09:12)
[2019-01-04] MEDS: Aggrenox 200-25mg CAP PO SCH ×2 (09:12→20:25)
[2019-01-04] MEDS: Azelastine 137 MCG/Spray 30 ML NS SCH ×2 (09:13→20:23)
[2019-01-04] MEDS: Sodium Chloride 0.9% 1,000 ML IV SCH ×2 (09:19→20:25)
--- NOTE | 2019-01-04 12:02 | PDOC.PN ---
- Subjective Encounter Start Date: 01/04/19 Encounter Start Time: 09:45 -: old records requested/rev Patient seen and examined. No new complaints. No overnight events - Objective Resuscitation Status - Order Detail: 01/03/19 21:55 Resuscitation Status Routine Resuscitation Status: FULL: Full Resuscitation MAR Reviewed: Yes Vital Signs & Weight: Vital Signs (12 hours) Temp Pulse Resp BP Pulse Ox 01/04/19 10:23 100 12 01/04/19 09:12 89 01/04/19 07:59 98.9 F 89 16 123/67 98 01/04/19 07:45 94 L 01/04/19 06:46 90 12 01/04/19 04:15 74 16 94 L 01/04/19 04:00 102.0 F H 99 16 125/51 L 91 L Weight Weight 134 lb 1.6 oz I&O: 01/03/19 01/04/19 01/05/19 06:59 06:59 06:59 Intake Total 1580 Balance 1580 Result Diagrams: 01/04/19 05:24 01/04/19 05:24 Additional Labs: Accuchecks 01/04/19 01/03/19 04:05 21:35 POC Glucose 163 H 104 Radiology Reviewed by me: Yes Phys Exam - Physical Examination Constitutional: NAD HEENT: PERRLA, moist MMs, sclera anicteric Neck: no JVD, supple Respiratory: no wheezing, no rhonchi left base rales Cardiovascular: RRR, no significant murmur, no rub Gastrointestinal: soft, non-tender, no distention, positive bowel sounds Musculoskeletal: no edema, pulses present Neurological: non-focal, normal sensation, moves all 4 limbs Lymphatic: no nodes Psychiatric: normal affect, A&O x 3 Skin: no rash, normal turgor Dx/Plan (1) Acute kidney failure Status: Acute (2) Community acquired bacterial pneumonia Code(s): J15.9 - UNSPECIFIED BACTERIAL PNEUMONIA Status: Acute (3) Hyponatremia Code(s): E87.1 - HYPO-OSMOLALITY AND HYPONATREMIA Status: Acute (4) Sepsis with acute organ dysfunction Code(s): A41.9 - SEPSIS, UNSPECIFIED ORGANISM; R65.20 - SEVERE SEPSIS WITHOUT SEPTIC SHOCK Status: Acute (5) Dementia Code(s): F03.90 - UNSPECIFIED DEMENTIA WITHOUT BEHAVIORAL DISTURBANCE Status: Chronic (6) Dyslipidemia Code(s): E78.5 - HYPERLIPIDEMIA, UNSPECIFIED Status: Chronic (7) GERD (gastroesophageal reflux disease) Code(s): K21.9 - GASTRO-ESOPHAGEAL REFLUX DISEASE WITHOUT ESOPHAGITIS Status: Chronic (8) HTN (hypertension) Code(s): I10 - ESSENTIAL (PRIMARY) HYPERTENSION Status: Chronic (9) Iron deficiency anemia Code(s): D50.9 - IRON DEFICIENCY ANEMIA, UNSPECIFIED Status: Chronic - Plan cont current plan of care, continue antibiotics, respiratory therapy * continue cefepime and levaquin * continue IVF * repeat labs tomorrow. * medication reviewed as below * symptomatic treatment Review of Systems - Review of Systems Respiratory: Cough, Shortness of Breath. negative: Dry, Hemoptysis, SOB with Excertion, Pleuritic Pain, Sputum, Wheezing Cardiovascular: negative: chest pain, palpitations, orthopnea, paroxysmal nocturnal dyspnea, edema, light headedness, other Gastrointestinal: negative: Nausea, Vomiting, Abdominal Pain, Diarrhea, Constipation, Melena, Hematochezia, Other Genitourinary: negative: Dysuria, Frequency, Incontinence, Hematuria, Retention , Other Musculoskeletal: negative: Neck Pain, Shoulder Pain, Arm Pain, Back Pain, Hand Pain, Leg Pain, Foot Pain, Other Skin: negative: Rash, Lesions, Dre, Bruising, Other - Medications/Allergies Allergies/Adverse Reactions: Allergies Allergy/AdvReac Type Severity Reaction Status Date / Time donepezil [From Aricept] Allergy Verified 01/04/19 02:50 duloxetine HCl Allergy Verified 01/04/19 02:50 [From Cymbalta] hydrochlorothiazide Allergy Verified 01/04/19 02:50 hydrocodone Allergy Verified 01/04/19 02:50 Latex, Natural Rubber Allergy Verified 01/04/19 02:50 prednisone Allergy Verified 01/04/19 02:50 tramadol Allergy Verified 01/04/19 02:50 Medications: Current Medications Acetaminophen (Tylenol) 1,000 mg PO Q6H PRN PRN Reason: Mild Pain (1-3) Last Admin: 01/04/19 04:09 Dose: 1,000 mg Albuterol/Ipratropium (Duoneb) 3 ml NEB [id number] DIANNE Last Admin: 01/04/19 10:23 Dose: 3 ml Aspirin (Ecotrin) 81 mg PO DAILY [facility] Last Admin: 01/04/19 09:05 Dose: 81 mg Atorvastatin Calcium (Lipitor) 20 mg PO HS [facility] Azelastine HCl (Azelastine) 0 ml NS BID [facility] Last Admin: 01/04/19 09:13 Dose: 1 spr Benzonatate (Tessalon) 100 mg PO Q6H PRN PRN Reason: Cough Bisacodyl (Dulcolax) 10 mg [place] DAILYPRN PRN PRN Reason: Constipation Diltiazem HCl (Cardizem Cd) 300 mg PO DAILY [facility] Last Admin: 01/04/19 09:12 Dose: 300 mg Dipyridamole/Aspirin (Aggrenox) 1 cap PO BID [facility] Last Admin: 01/04/19 09:12 Dose: 1 cap Famotidine (Pepcid) 20 mg PO DAILY [facility] Fluticasone Propionate (Flonase Nasal [place]) 0 gm NASAL DAILY [facility] Last Admin: 01/04/19 09:09 Dose: 1 spr Gabapentin (Neurontin) 200 mg PO HS [facility] Gabapentin (Neurontin) 100 mg PO TID-WM [facility] Last Admin: 01/04/19 09:05 Dose: 100 mg Guaifenesin (Robitussin Sf) 200 mg PO Q4H PRN PRN Reason: Cough Guaifenesin/Dextromethorphan (Robitussin Dm) 15 ml PO Q4H PRN PRN Reason: Cough Hydralazine HCl (Apresoline) 10 mg SLOW IVP Q4H PRN PRN Reason: SBP > 180 and HR < 70 Cefepime HCl 2 gm/ Sodium (Chloride) 100 mls @ 200 mls/hr IVPB Q12HR [facility] Last Admin: 01/04/19 09:06 Dose: 100 mls Levofloxacin 500 mg/ Device 100 mls @ 100 mls/hr IVPB Q24HR [facility] Last Admin: 01/04/19 09:20 Dose: 100 mls Sodium Chloride (Normal Saline 0.9%) 1,000 mls @ 100 mls/hr IV .Q10H [facility] Last Admin: 01/04/19 09:19 Dose: 1,000 mls Loperamide HCl (Imodium) 2 mg PO PRN PRN PRN Reason: Diarrhea/Loose Stools Loratadine (Claritin) 10 mg PO DAILYPRN PRN PRN Reason: Sinus Symptoms Meclizine HCl (Antivert) 25 mg PO DAILYPRN PRN PRN Reason: Dizziness Mometasone Furoate/Formoterol Fumar (Dulera 200 Mcg/5 Mcg Inhaler) 2 puff INH BID-RT [facility] Last Admin: 01/04/19 06:44 Dose: 2 puff Montelukast Sodium (Singulair) 10 mg PO HS [facility] Nitroglycerin (Nitrostat) 0.4 mg SL Q5MIN PRN PRN Reason: Chest Pain Nortriptyline HCl (Pamelor) 10 mg PO HS [facility] Ondansetron HCl (Zofran Odt) 4 mg PO Q6H PRN PRN Reason: Nausea/Vomiting Ondansetron HCl (Zofran) 4 mg IVP Q6H PRN PRN Reason: Nausea/Vomiting Polyethylene Glycol (Miralax) 17 gm PO DAILY [facility] Last Admin: 01/04/19 09:08 Dose: 17 gm Senna/Docusate Sodium (Senokot S) 2 tab PO BID PRN PRN Reason: Constipation Sodium Chloride ([place] Nasal [place] 0.65%) 0 ml EA NARE QIDPRN PRN PRN Reason: Nasal Congestion Temazepam (Restoril) 15 mg PO HSPRN PRN PRN Reason: Insomnia Throat Lozenges (Cepastat Lozenges) 1 yuri PO Q2H PRN PRN Reason: Sore Throat
[2019-01-04] MEDS: Montelukast Sodium 10 mg Tablet PO SCH (20:24)
[2019-01-04] MEDS: Atorvastatin Calcium 20 MG TAB PO SCH (20:24)
[2019-01-04] MEDS: Nortriptyline 10 MG CAP PO SCH (20:24)
[2019-01-04] MEDS ORDERED: Amlodipine 5 MG TAB PO SCH (21:00)
[2019-01-05] MEDS: Sodium Chloride 0.9% 1,000 ML IV SCH ×3 (03:41→21:02)
[2019-01-05 05:18] LABS: #Lymphocytes 1.2 thou/uL (1.20-3.40); #Monocytes 1.3 thou/uL (0.11-0.59); %Basophils 0.2 % (0.0-1.0); %Lymphocytes 7.8 % (21.0-51.0); %Monocytes 8.4 % (0.0-10.0); %Neutrophils 83.6 % (42.0-75.0); Hemoglobin 8.8 g/dL (12.0-16.0); Mean Corpuscular HGB CONC 32.2 g/dL (32.0-36.0); Mean Corpuscular Hemoglobin 22.7 pg (27.0-31.0); Mean Corpuscular Volume 70.6 fL (78.0-98.0); Platelet Count 241 thou/uL (130-400); RBC Distribution Width 15.3 % (11.5-14.5); Red Blood Cell (RBC) Count 3.89 mill/uL (4.20-5.40); White Blood Cell (WBC) Count 15.6 thou/uL (4.8-10.8)
[2019-01-05 05:35] LABS: ALT (SGPT) 33 U/L (8-55); AST (SGOT) 79 U/L (5-34); Albumin 3.1 g/dL (3.4-4.8); Alkaline Phosphatase 56 U/L (40-150); Anion Gap 12 mmol/L (10-20); BUN (Urea Nitrogen) 18 mg/dL (9.8-20.1); Bilirubin, Total 0.6 mg/dL (0.2-1.2); Calc. Creatinine Clearance 32 mL/min (70-130); Calcium 8.5 mg/dL (7.8-10.44); Carbon Dioxide 23 mmol/L (23-31); Chloride 104 mmol/L (98-107); Estimated GFR-MDRD 44; Globulin 2.7 g/dL (2.4-3.5); Glucose 88 mg/dL (83-110); Potassium 4.5 mmol/L (3.5-5.1); Protein, Total 5.8 g/dL (6.0-8.3); Sodium 134 mmol/L (136-145)
[2019-01-05] MEDS: Mometasone/Formoterol 120 PUFF INHALER INH SCH ×2 (07:35→18:40)
[2019-01-05] MEDS: Aspirin 81 mg Enteric Coated Tablet PO SCH (08:02)
[2019-01-05] MEDS: Gabapentin 100 MG CAP PO SCH ×4 (08:05→20:51)
[2019-01-05] MEDS: Polyethylene Glycol 3350 17 GM Packet PO SCH (08:06)
[2019-01-05] MEDS: Famotidine 20 MG TAB PO SCH (08:06)
[2019-01-05] MEDS: Cefepime 2 GM in Sodium Chloride 0.9% 100 ML IVPB SCH ×2 (08:07→20:51)
[2019-01-05] MEDS: Azelastine 137 MCG/Spray 30 ML NS SCH ×2 (08:07→20:50)
[2019-01-05] MEDS: Fluticasone Propionate Nasal Spray 16 gm Bottle NASAL SCH (08:13)
[2019-01-05] MEDS: Diltiazem HCl CD 300 mg Capsule PO SCH (09:05)
[2019-01-05] MEDS: Aggrenox 200-25mg CAP PO SCH ×2 (09:06→20:51)
--- NOTE | 2019-01-05 12:05 | PDOC.PN ---
- Subjective Encounter Start Date: 01/05/19 Encounter Start Time: 10:00 Patient seen and examined. No new complaints. No overnight events - Objective Resuscitation Status - Order Detail: 01/03/19 21:55 Resuscitation Status Routine Resuscitation Status: FULL: Full Resuscitation MAR Reviewed: Yes Vital Signs & Weight: Vital Signs (12 hours) Temp Pulse Resp BP Pulse Ox 01/05/19 11:10 99.1 F 01/05/19 10:14 91 20 97 01/05/19 09:05 86 01/05/19 08:00 93 L 01/05/19 07:56 98.2 F 86 20 143/86 H 93 L 01/05/19 07:35 80 20 94 L 01/05/19 06:07 98.4 F 01/05/19 06:00 94 L Weight Weight 134 lb 1.6 oz I&O: 01/04/19 01/05/19 01/06/19 06:59 06:59 06:59 Intake Total 4214 Balance 4214 Result Diagrams: 01/05/19 04:44 01/05/19 04:44 Additional Labs: Accuchecks 01/05/19 01/05/19 01/04/19 11:15 04:59 21:50 POC Glucose 129 H 87 98 Phys Exam - Physical Examination Constitutional: NAD HEENT: PERRLA, moist MMs, sclera anicteric Neck: no JVD, supple Respiratory: no wheezing, no rhonchi left base few rales+ Cardiovascular: RRR, no significant murmur, no rub Gastrointestinal: soft, non-tender, no distention, positive bowel sounds Musculoskeletal: no edema, pulses present Neurological: non-focal, normal sensation, moves all 4 limbs Lymphatic: no nodes Psychiatric: normal affect, A&O x 3 Skin: no rash, normal turgor Dx/Plan (1) Acute kidney failure Status: Acute (2) Community acquired bacterial pneumonia Code(s): J15.9 - UNSPECIFIED BACTERIAL PNEUMONIA Status: Acute (3) Hyponatremia Code(s): E87.1 - HYPO-OSMOLALITY AND HYPONATREMIA Status: Acute (4) Sepsis with acute organ dysfunction Code(s): A41.9 - SEPSIS, UNSPECIFIED ORGANISM; R65.20 - SEVERE SEPSIS WITHOUT SEPTIC SHOCK Status: Acute (5) Dementia Code(s): F03.90 - UNSPECIFIED DEMENTIA WITHOUT BEHAVIORAL DISTURBANCE Status: Chronic (6) Dyslipidemia Code(s): E78.5 - HYPERLIPIDEMIA, UNSPECIFIED Status: Chronic (7) GERD (gastroesophageal reflux disease) Code(s): K21.9 - GASTRO-ESOPHAGEAL REFLUX DISEASE WITHOUT ESOPHAGITIS Status: Chronic (8) HTN (hypertension) Code(s): I10 - ESSENTIAL (PRIMARY) HYPERTENSION Status: Chronic (9) Iron deficiency anemia Code(s): D50.9 - IRON DEFICIENCY ANEMIA, UNSPECIFIED Status: Chronic - Plan cont current plan of care, continue antibiotics, respiratory therapy * sepsis and [place] improving * continue cefepime and levaquin * medication reviewed as below * symptomatic treatment. * continue IVF * repeat labs tomorrow Review of Systems - Review of Systems Respiratory: Cough. negative: Dry, Shortness of Breath, Hemoptysis, SOB with Excertion, Pleuritic Pain, Sputum, Wheezing Cardiovascular: negative: chest pain, palpitations, orthopnea, paroxysmal nocturnal dyspnea, edema, light headedness, other Gastrointestinal: negative: Nausea, Vomiting, Abdominal Pain, Diarrhea, Constipation, Melena, Hematochezia, Other Genitourinary: negative: Dysuria, Frequency, Incontinence, Hematuria, Retention , Other Musculoskeletal: negative: Neck Pain, Shoulder Pain, Arm Pain, Back Pain, Hand Pain, Leg Pain, Foot Pain, Other Skin: negative: Rash, Lesions, Dre, Bruising, Other - Medications/Allergies Allergies/Adverse Reactions: Allergies Allergy/AdvReac Type Severity Reaction Status Date / Time donepezil [From Aricept] Allergy Verified 01/04/19 02:50 duloxetine HCl Allergy Verified 01/04/19 02:50 [From Cymbalta] hydrochlorothiazide Allergy Verified 01/04/19 02:50 hydrocodone Allergy Verified 01/04/19 02:50 Latex, Natural Rubber Allergy Verified 01/04/19 02:50 prednisone Allergy Verified 01/04/19 02:50 tramadol Allergy Verified 01/04/19 02:50 Medications: Current Medications Acetaminophen (Tylenol) 1,000 mg PO Q6H PRN PRN Reason: Mild Pain (1-3) Last Admin: 01/04/19 22:03 Dose: 1,000 mg Albuterol/Ipratropium (Duoneb) 3 ml NEB [id number] Last Admin: 01/05/19 10:14 Dose: 3 ml Aspirin (Ecotrin) 81 mg PO DAILY [facility] Last Admin: 01/05/19 08:02 Dose: 81 mg Atorvastatin Calcium (Lipitor) 20 mg PO HS [facility] Last Admin: 01/04/19 20:24 Dose: 20 mg Azelastine HCl (Azelastine) 0 ml NS BID [facility] Last Admin: 01/05/19 08:07 Dose: 1 spr Benzonatate (Tessalon) 100 mg PO Q6H PRN PRN Reason: Cough Bisacodyl (Dulcolax) 10 mg [place] DAILYPRN PRN PRN Reason: Constipation Diltiazem HCl (Cardizem Cd) 300 mg PO DAILY [facility] Last Admin: 01/05/19 09:05 Dose: 300 mg Dipyridamole/Aspirin (Aggrenox) 1 cap PO BID [facility] Last Admin: 01/05/19 09:06 Dose: 1 cap Famotidine (Pepcid) 20 mg PO DAILY [facility] Last Admin: 01/05/19 08:06 Dose: 20 mg Fluticasone Propionate (Flonase Nasal [place]) 0 gm NASAL DAILY [facility] Last Admin: 01/05/19 08:13 Dose: 1 spr Gabapentin (Neurontin) 200 mg PO HS [facility] Last Admin: 01/04/19 20:24 Dose: 200 mg Gabapentin (Neurontin) 100 mg PO TID-WM REPL[facility] Last Admin: 01/05/19 08:05 Dose: 100 mg Guaifenesin (Robitussin Sf) 200 mg PO Q4H PRN PRN Reason: Cough Guaifenesin/Dextromethorphan (Robitussin Dm) 15 ml PO Q4H PRN PRN Reason: Cough Hydralazine HCl (Apresoline) 10 mg SLOW IVP Q4H PRN PRN Reason: SBP > 180 and HR < 70 Cefepime HCl 2 gm/ Sodium (Chloride) 100 mls @ 200 mls/hr IVPB Q12HR [facility] Last Admin: 01/05/19 08:07 Dose: 100 mls Levofloxacin 500 mg/ Device 100 mls @ 100 mls/hr IVPB Q24HR [facility] Last Admin: 01/05/19 08:19 Dose: 100 mls Sodium Chloride (Normal Saline 0.9%) 1,000 mls @ 100 mls/hr IV .Q10H [facility]PL[facility]ED [facility] Last Admin: 01/05/19 03:41 Dose: Not Given Loperamide HCl (Imodium) 2 mg PO PRN PRN PRN Reason: Diarrhea/Loose Stools Loratadine (Claritin) 10 mg PO DAILYPRN PRN PRN Reason: Sinus Symptoms Meclizine HCl (Antivert) 25 mg PO DAILYPRN PRN PRN Reason: Dizziness Mometasone Furoate/Formoterol Fumar (Dulera 200 Mcg/5 Mcg Inhaler) 2 puff INH BID-RT [facility]PL[facility]ED [facility] Last Admin: 01/05/19 07:35 Dose: 2 puff Montelukast Sodium (Singulair) 10 mg PO HS [facility] Last Admin: 01/04/19 20:24 Dose: 10 mg Nitroglycerin (Nitrostat) 0.4 mg SL Q5MIN PRN PRN Reason: Chest Pain Nortriptyline HCl (Pamelor) 10 mg PO HS [facility] Last Admin: 01/04/19 20:24 Dose: 10 mg Ondansetron HCl (Zofran Odt) 4 mg PO Q6H PRN PRN Reason: Nausea/Vomiting Ondansetron HCl (Zofran) 4 mg IVP Q6H PRN PRN Reason: Nausea/Vomiting Polyethylene Glycol (Miralax) 17 gm PO DAILY [facility] Last Admin: 01/05/19 08:06 Dose: 17 gm Senna/Docusate Sodium (Senokot S) 2 tab PO BID PRN PRN Reason: Constipation Sodium Chloride ([place] Nasal [place] 0.65%) 0 ml EA NARE QIDPRN PRN PRN Reason: Nasal Congestion Temazepam (Restoril) 15 mg PO HSPRN PRN PRN Reason: Insomnia Throat Lozenges (Cepastat Lozenges) 1 yuri PO Q2H PRN PRN Reason: Sore Throat
[2019-01-05] MEDS: Acetaminophen 500 MG TAB PO PRN (20:50)
[2019-01-05] MEDS: Guaifenesin DM 100-10/5 ML UDCUP PO PRN (20:50)
[2019-01-05] MEDS: Atorvastatin Calcium 20 MG TAB PO SCH (20:51)
[2019-01-05] MEDS: Nortriptyline 10 MG CAP PO SCH (20:51)
[2019-01-05] MEDS: Montelukast Sodium 10 mg Tablet PO SCH (20:51)
[2019-01-06 04:43] LABS: #Lymphocytes 1.1 thou/uL (1.20-3.40); #Monocytes 1.2 thou/uL (0.11-0.59); #Neutrophils 9.9 thou/uL (1.40-6.50); %Basophils 0.3 % (0.0-1.0); %Eosinophils 0.1 % (0.0-10.0); %Lymphocytes 8.6 % (21.0-51.0); %Monocytes 9.6 % (0.0-10.0); %Neutrophils 81.4 % (42.0-75.0); Hemoglobin 8.8 g/dL (12.0-16.0); Mean Corpuscular HGB CONC 32.3 g/dL (32.0-36.0); Mean Corpuscular Volume 71.2 fL (78.0-98.0); Platelet Count 254 thou/uL (130-400); RBC Distribution Width 15.5 % (11.5-14.5); Red Blood Cell (RBC) Count 3.83 mill/uL (4.20-5.40); White Blood Cell (WBC) Count 12.1 thou/uL (4.8-10.8)
[2019-01-06 05:03] LABS: Anion Gap 11 mmol/L (10-20); BUN (Urea Nitrogen) 13 mg/dL (9.8-20.1); Calc. Creatinine Clearance 51 mL/min (70-130); Calcium 8.6 mg/dL (7.8-10.44); Carbon Dioxide 21 mmol/L (23-31); Chloride 104 mmol/L (98-107); Estimated GFR-MDRD 75; Glucose 91 mg/dL (83-110); Potassium 4.4 mmol/L (3.5-5.1); Sodium 132 mmol/L (136-145)
[2019-01-06] MEDS: Gabapentin 100 MG CAP PO SCH ×4 (08:09→20:46)
[2019-01-06] MEDS: Famotidine 20 MG TAB PO SCH (08:09)
[2019-01-06] MEDS: Aspirin 81 mg Enteric Coated Tablet PO SCH (08:09)
[2019-01-06] MEDS: Fluticasone Propionate Nasal Spray 16 gm Bottle NASAL SCH (08:10)
[2019-01-06] MEDS: Azelastine 137 MCG/Spray 30 ML NS SCH ×2 (08:10→20:46)
[2019-01-06] MEDS: Polyethylene Glycol 3350 17 GM Packet PO SCH (08:11)
[2019-01-06] MEDS: Cefepime 2 GM in Sodium Chloride 0.9% 100 ML IVPB SCH ×2 (08:12→20:46)
[2019-01-06] MEDS: Mometasone/Formoterol 120 PUFF INHALER INH SCH ×2 (08:21→18:11)
[2019-01-06] MEDS: Diltiazem HCl CD 300 mg Capsule PO SCH (09:05)
[2019-01-06] MEDS: Aggrenox 200-25mg CAP PO SCH ×2 (09:05→20:46)
--- NOTE | 2019-01-06 10:43 | PDOC.PN ---
- Subjective Encounter Start Date: 01/06/19 Encounter Start Time: 10:20 Patient seen and examined. No new complaints. No overnight events - Objective Resuscitation Status - Order Detail: 01/03/19 21:55 Resuscitation Status Routine Resuscitation Status: FULL: Full Resuscitation MAR Reviewed: Yes Vital Signs & Weight: Vital Signs (12 hours) Temp Pulse Resp BP BP Pulse Ox 01/06/19 09:05 97 168/64 H 01/06/19 08:19 97 16 92 L 01/06/19 08:00 98.8 F 92 20 168/84 H 92 L 01/06/19 04:00 99.2 F 73 18 138/64 94 L 01/06/19 00:00 98.7 F 73 18 105/63 94 L Weight Admit Weight 134 lb 1.6 oz Weight 134 lb 1.6 oz I&O: 01/05/19 01/06/19 01/07/19 06:59 06:59 06:59 Intake Total 4214 1779 Balance 4214 1779 Result Diagrams: 01/06/19 04:16 01/06/19 04:16 Additional Labs: Accuchecks 01/06/19 01/05/19 01/05/19 05:37 20:53 16:06 POC Glucose 93 126 H 96 01/05/19 11:15 POC Glucose 129 H Phys Exam - Physical Examination Constitutional: NAD HEENT: PERRLA, moist MMs, sclera anicteric Neck: no JVD, supple Respiratory: no wheezing, no rales, no rhonchi Cardiovascular: RRR, no significant murmur, no rub Gastrointestinal: soft, non-tender, no distention, positive bowel sounds Musculoskeletal: no edema, pulses present Neurological: non-focal, normal sensation, moves all 4 limbs Lymphatic: no nodes Psychiatric: normal affect, A&O x 3 Skin: no rash, normal turgor Dx/Plan (1) Acute kidney failure Status: Acute (2) Community acquired bacterial pneumonia Code(s): J15.9 - UNSPECIFIED BACTERIAL PNEUMONIA Status: Acute (3) Hyponatremia Code(s): E87.1 - HYPO-OSMOLALITY AND HYPONATREMIA Status: Acute (4) Sepsis with acute organ dysfunction Code(s): A41.9 - SEPSIS, UNSPECIFIED ORGANISM; R65.20 - SEVERE SEPSIS WITHOUT SEPTIC SHOCK Status: Acute (5) Dementia Code(s): F03.90 - UNSPECIFIED DEMENTIA WITHOUT BEHAVIORAL DISTURBANCE Status: Chronic (6) Dyslipidemia Code(s): E78.5 - HYPERLIPIDEMIA, UNSPECIFIED Status: Chronic (7) GERD (gastroesophageal reflux disease) Code(s): K21.9 - GASTRO-ESOPHAGEAL REFLUX DISEASE WITHOUT ESOPHAGITIS Status: Chronic (8) HTN (hypertension) Code(s): I10 - ESSENTIAL (PRIMARY) HYPERTENSION Status: Chronic (9) Iron deficiency anemia Code(s): D50.9 - IRON DEFICIENCY ANEMIA, UNSPECIFIED Status: Chronic - Plan cont current plan of care, plan discussed w/ family, continue antibiotics * medication reviewed as below * symptomatic treatment * continue cefepime and levaquin * DC IVF * expecting discharge tomorrow. Review of Systems - Review of Systems ENT: negative: Ear Pain, Ear Discharge, Nose Pain, Nose Discharge, Nose Congestion, Mouth Pain, Mouth Swelling, Throat Pain, Throat Swelling, Other Respiratory: negative: Cough, Dry, Shortness of Breath, Hemoptysis, SOB with Excertion, Pleuritic Pain, Sputum, Wheezing Cardiovascular: negative: chest pain, palpitations, orthopnea, paroxysmal nocturnal dyspnea, edema, light headedness, other Gastrointestinal: negative: Nausea, Vomiting, Abdominal Pain, Diarrhea, Constipation, Melena, Hematochezia, Other Genitourinary: negative: Dysuria, Frequency, Incontinence, Hematuria, Retention , Other Musculoskeletal: negative: Neck Pain, Shoulder Pain, Arm Pain, Back Pain, Hand Pain, Leg Pain, Foot Pain, Other - Medications/Allergies Allergies/Adverse Reactions: Allergies Allergy/AdvReac Type Severity Reaction Status Date / Time donepezil [From Aricept] Allergy Verified 01/04/19 02:50 duloxetine HCl Allergy Verified 01/04/19 02:50 [From Cymbalta] hydrochlorothiazide Allergy Verified 01/04/19 02:50 hydrocodone Allergy Verified 01/04/19 02:50 Latex, Natural Rubber Allergy Verified 01/04/19 02:50 prednisone Allergy Verified 01/04/19 02:50 tramadol Allergy Verified 01/04/19 02:50 Medications: Current Medications Acetaminophen (Tylenol) 1,000 mg PO Q6H PRN PRN Reason: Mild Pain (1-3) Last Admin: 01/05/19 20:50 Dose: 1,000 mg Albuterol/Ipratropium (Duoneb) 3 ml NEB [id number] [facility] Last Admin: 01/06/19 08:19 Dose: 3 ml Aspirin (Ecotrin) 81 mg PO DAILY [facility] Last Admin: 01/06/19 08:09 Dose: 81 mg Atorvastatin Calcium (Lipitor) 20 mg PO HS [facility] Last Admin: 01/05/19 20:51 Dose: 20 mg Azelastine HCl (Azelastine) 0 ml NS BID [facility] Last Admin: 01/06/19 08:10 Dose: 1 spr Benzonatate (Tessalon) 100 mg PO Q6H PRN PRN Reason: Cough Bisacodyl (Dulcolax) 10 mg [place] DAILYPRN PRN PRN Reason: Constipation Diltiazem HCl (Cardizem Cd) 300 mg PO DAILY [facility] Last Admin: 01/06/19 09:05 Dose: 300 mg Dipyridamole/Aspirin (Aggrenox) 1 cap PO BID [facility] Last Admin: 01/06/19 09:05 Dose: 1 cap Famotidine (Pepcid) 20 mg PO DAILY [facility] Last Admin: 01/06/19 08:09 Dose: 20 mg Fluticasone Propionate (Flonase Nasal [place]) 0 gm NASAL DAILY [facility] Last Admin: 01/06/19 08:10 Dose: 1 spr Gabapentin (Neurontin) 200 mg PO HS [facility] Last Admin: 01/05/19 20:51 Dose: 200 mg Gabapentin (Neurontin) 100 mg PO TID-WM [facility] Last Admin: 01/06/19 08:09 Dose: 100 mg Guaifenesin (Robitussin Sf) 200 mg PO Q4H PRN PRN Reason: Cough Guaifenesin/Dextromethorphan (Robitussin Dm) 15 ml PO Q4H PRN PRN Reason: Cough Last Admin: 01/05/19 20:50 Dose: 15 ml Hydralazine HCl (Apresoline) 10 mg SLOW IVP Q4H PRN PRN Reason: SBP > 180 and HR < 70 Cefepime HCl 2 gm/ Sodium (Chloride) 100 mls @ 200 mls/hr IVPB Q12HR [facility] Last Admin: 01/06/19 08:12 Dose: 100 mls Levofloxacin 500 mg/ Device 100 mls @ 100 mls/hr IVPB Q24HR [facility] Last Admin: 01/06/19 08:11 Dose: 100 mls Loperamide HCl (Imodium) 2 mg PO PRN PRN PRN Reason: Diarrhea/Loose Stools Loratadine (Claritin) 10 mg PO DAILYPRN PRN PRN Reason: Sinus Symptoms Meclizine HCl (Antivert) 25 mg PO DAILYPRN PRN PRN Reason: Dizziness Mometasone Furoate/Formoterol Fumar (Dulera 200 Mcg/5 Mcg Inhaler) 2 puff INH BID-RT [facility] Last Admin: 01/06/19 08:21 Dose: 2 puff Montelukast Sodium (Singulair) 10 mg PO HS [facility] Last Admin: 01/05/19 20:51 Dose: 10 mg Nitroglycerin (Nitrostat) 0.4 mg SL Q5MIN PRN PRN Reason: Chest Pain Nortriptyline HCl (Pamelor) 10 mg PO [facility] Last Admin: 01/05/19 20:51 Dose: 10 mg Ondansetron HCl (Zofran Odt) 4 mg PO Q6H PRN PRN Reason: Nausea/Vomiting Ondansetron HCl (Zofran) 4 mg IVP Q6H PRN PRN Reason: Nausea/Vomiting Polyethylene Glycol (Miralax) 17 gm PO DAILY [facility] Last Admin: 01/06/19 08:11 Dose: Not Given Senna/Docusate Sodium (Senokot S) 2 tab PO BID PRN PRN Reason: Constipation Sodium Chloride ([place] Nasal [place] 0.65%) 0 ml EA NARE QIDPRN PRN PRN Reason: Nasal Congestion Temazepam (Restoril) 15 mg PO HSPRN PRN PRN Reason: Insomnia Throat Lozenges (Cepastat Lozenges) 1 yuri PO Q2H PRN PRN Reason: Sore Throat
[2019-01-06] MEDS: Montelukast Sodium 10 mg Tablet PO SCH (20:45)
[2019-01-06] MEDS: Nortriptyline 10 MG CAP PO SCH (20:46)
[2019-01-06] MEDS: Atorvastatin Calcium 20 MG TAB PO SCH (20:46)
[2019-01-06] MEDS: Acetaminophen 500 MG TAB PO PRN (20:57)
[2019-01-06] MEDS: Guaifenesin DM 100-10/5 ML UDCUP PO PRN (20:58)
[2019-01-07] MEDS: Guaifenesin DM 100-10/5 ML UDCUP PO PRN (04:22)
[2019-01-07 06:43] LABS: Hemoglobin 9.2 g/dL (12.0-16.0); Mean Corpuscular HGB CONC 33.1 g/dL (32.0-36.0); Mean Corpuscular Hemoglobin 22.7 pg (27.0-31.0); Mean Corpuscular Volume 68.6 fL (78.0-98.0); Mean Platelet Volume 8.7 fL (7.4-10.4); Platelet Count 280 thou/uL (130-400); RBC Distribution Width 15.5 % (11.5-14.5); Red Blood Cell (RBC) Count 4.03 mill/uL (4.20-5.40); White Blood Cell (WBC) Count 8.7 thou/uL (4.8-10.8)
[2019-01-07] MEDS: Mometasone/Formoterol 120 PUFF INHALER INH SCH (07:44)
[2019-01-07 07:56] LABS: #Lymphocytes 1.2 thou/uL (1.20-3.40); #Monocytes 1.1 thou/uL (0.11-0.59); #Neutrophils 6.3 thou/uL (1.40-6.50); %Basophils 0.3 % (0.0-1.0); %Eosinophils 0.4 % (0.0-10.0); %Monocytes 12.1 % (0.0-10.0); %Neutrophils 73.3 % (42.0-75.0); Hypochromia SLIGHT = 6-15 cells (100X) (0-5/hpf); MDiff Complete? YES; Microcytosis MODERATE=15-30 cells (100X) (0-5/hpf); Ovalocytes SLIGHT = 2-5 cells (100X) (0-1/hpf); Platelet Morphology Comment Appears Adequate; Polychromasia MODERATE = 3-4 cells (100X) (0-2/hpf); Target Cells SLIGHT = 2-5 cells (100X) (0-1/hpf)
[2019-01-07 08:09] VITALS: BP 151/66; TEMP 98.3
[2019-01-07] MEDS: Cefepime 2 GM in Sodium Chloride 0.9% 100 ML IVPB SCH (08:09)
[2019-01-07] MEDS: Aspirin 81 mg Enteric Coated Tablet PO SCH (08:10)
[2019-01-07] MEDS: Famotidine 20 MG TAB PO SCH (08:11)
[2019-01-07] MEDS: Azelastine 137 MCG/Spray 30 ML NS SCH (08:11)
[2019-01-07] MEDS: Gabapentin 100 MG CAP PO SCH (08:11)
[2019-01-07] MEDS: Polyethylene Glycol 3350 17 GM Packet PO SCH (08:12)
[2019-01-07] MEDS: Fluticasone Propionate Nasal Spray 16 gm Bottle NASAL SCH (08:12)
[2019-01-07] MEDS: Aggrenox 200-25mg CAP PO SCH (09:13)
[2019-01-07] MEDS: Diltiazem HCl CD 300 mg Capsule PO SCH (09:14)
[2019-01-07] MEDS: Acetaminophen 500 MG TAB PO PRN (09:18)
--- NOTE | 2019-01-07 11:07 | DIS ---
DATE OF ADMISSION: 01/03/2019 DATE OF DISCHARGE: 01/07/2019 PRIMARY CARE PHYSICIAN: Dr. Giovanny Peguero. DISCHARGE DISPOSITION: Home. PRIMARY DISCHARGE DIAGNOSES: 1. Acute kidney failure, improved. 2. Community-acquired bacterial pneumonia. 3. Hyponatremia. 4. Sepsis with acute organ dysfunction. SECONDARY DISCHARGE DIAGNOSES: 1. Chronic iron deficiency anemia. 2. Hypertension. 3. Gastroesophageal reflux disease. 4. Dyslipidemia. 5. Dementia. PRIMARY PROCEDURE/OPERATION: None. RADIOLOGICAL INVESTIGATION: Chest x-ray on admission showed left lower lobe pneumonia. SIGNIFICANT LABORATORY DATA: WBC 8.7, hemoglobin 9.2, platelets 280. Sodium 132, potassium 4.4, BUN 13, creatinine 0.88, calcium 8.6. Urinalysis unremarkable. Blood culture, coagulase-negative Staphylococcus, likely contaminant. DISCHARGE MEDICATIONS: 1. Ventolin inhaler two puffs q.4 hourly p.r.n. 2. Tylenol 500 mg p.o. b.i.d. p.r.n. 3. Albuterol nebulization q.6 hourly p.r.n. 4. Aspirin 81 mg daily. 5. Lipitor 20 mg p.o. at bedtime. 6. Azelastine nasal spray daily. 7. Dexilant 60 mg p.o. at bedtime. 8. Cardizem CD 300 mg p.o. daily. 9. Colace 100 mg daily. 10. Estrace vaginal cream twice weekly as directed. 11. Flonase nasal spray daily. 12. Advair inhalation b.i.d. 13. Lasix 40 mg three times a week. 14. Gabapentin 100 mg t.i.d. 15. Claritin 10 mg daily. 16. Losartan 50 mg b.i.d. 17. Meclizine 25 mg daily p.r.n. 18. Singulair 10 mg p.o. at bedtime. 19. Nortriptyline 10 mg p.o. at bedtime. 20. MiraLAX 17 g p.o. daily. 21. Aldactone 12.5 mg p.o. daily. 22. Vitamin B complex one tablet p.o. daily. 23. Nitroglycerin 0.4 mg sublingual p.r.n. as directed. 24. Omnicef 300 mg p.o. b.i.d. for 5 more days. 25. Florastor 250 mg p.o. daily for 5 more days. CONTRAINDICATION: None. CODE STATUS: Full code. INPATIENT LOCATION MANAGER: None. ALLERGIES: DONEPEZIL, CYMBALTA, HYDROCHLOROTHIAZIDE, HYDROCODONE. DISCHARGE PLAN: Posthospital, the patient will follow up with primary care physician in one week. The patient will repeat chest x-ray in 2 to 3 weeks for resolution of pneumonia. HOSPITAL COURSE: A 78-year-old female, who was admitted by Dr. Sainz. Please see his H and P for further details. The patient was admitted for shortness of breath, cough, fever. She was having sepsis criteria. She had leukocytosis with left shift. She had a chest x-ray, which showed left lower lobe pneumonia. She also had acute kidney failure. She was admitted to telemetry/medical floor and she was treated with cefepime and levofloxacin. While in the hospital, she was given IV fluid. With IV fluid therapy, her kidney function improved to normal. Her leukocytosis resolved to normal by the time of discharge. The patient remained hemodynamically stable and afebrile. By the time of discharge, the patient was on room air. She was ambulatory, tolerating p.o. well. I have seen and examined the patient at bedside today. PHYSICAL EXAMINATION: VITAL SIGNS: Currently, temperature 98.3, pulse 93, respiratory rate 16, saturation 96% on room air, blood pressure 151/66. Weight 134 pounds. GENERAL: The patient is currently alert and awake, in no obvious acute distress. HEAD: Normocephalic and atraumatic. LUNGS: Clear to auscultation without any rhonchi or rales. CARDIAC: S1 and S2, regular without any murmur. ABDOMEN: Soft and benign. EXTREMITIES: No edema. NEUROLOGIC: Nonfocal examination. Overall, the patient is medically stable for discharge today. Job ID: [id number]
== END 2019-01-07 12:18 | disposition home or self-care (01) | DRG 871 ==
LOC: ERS 15:17 → T4-B 19:34
PROVIDERS: ADMIT Family Medicine; ATTEND Family Medicine
DX: A41.9 Sepsis, unspecified organism (principal); J15.6 Pneumonia due to other Gram-negative bacteria; I50.32 Chronic diastolic (congestive) heart failure; N17.9 Acute kidney failure, unspecified; E87.1 Hypo-osmolality and hyponatremia; E11.51 Type 2 diabetes mellitus with diabetic peripheral angiopathy without gangrene; E11.40 Type 2 diabetes mellitus with diabetic neuropathy, unspecified; E78.5 Hyperlipidemia, unspecified; F41.9 Anxiety disorder, unspecified; F32.9 Major depressive disorder, single episode, unspecified; M19.90 Unspecified osteoarthritis, unspecified site; J45.909 Unspecified asthma, uncomplicated; I11.0 Hypertensive heart disease with heart failure; R65.20 Severe sepsis without septic shock; K21.9 Gastro-esophageal reflux disease without esophagitis; D50.9 Iron deficiency anemia, unspecified; Z79.82 Long term (current) use of aspirin; Z87.891 Personal history of nicotine dependence; Z87.01 Personal history of pneumonia (recurrent); Z88.8 Allergy status to other drugs, medicaments and biological substances; Z91.040 Latex allergy status; Z79.899 Other long term (current) drug therapy; Z79.51 Long term (current) use of inhaled steroids
CPT/HCPCS: 36415; 36416; 51701; 71045; 71046; 80048; 80053; 81003; 81015; 83605; 83880; 85007; 85025; 85027; 87040; 87149; 93005; 94640; 94664; 96365; 96367; A4353; J0692; J1956; J2543; J3490; J7620

== ENCOUNTER 2019-03-03 10:41 | Outpatient (CLI) | payer MEDICARE, MEDICAID ==
--- NOTE | 2019-03-03 10:56 | RAD ---
EXAM: Chest 2 views: HISTORY: Dyspnea COMPARISON: 01/16/2018 FINDINGS: There is a normal-sized cardiomediastinal silhouette. Atherosclerotic calcific lesions are seen in t he aorta. There is no evidence of consolidation, mass, or pleural effusion. The bones are unremarkable. IMPRESSION: No evidence of acute cardiopulmonary disease
== END 2019-03-03 10:42 | disposition home or self-care (01) ==
LOC: RAD 10:41
PROVIDERS: ATTEND Internal Medicine Critical Care Medicine
DX: R06.00 Dyspnea, unspecified (principal)
CPT/HCPCS: 71046

== ENCOUNTER 2019-03-12 07:54 | Outpatient (CLI) | payer MEDICARE, MEDICAID ==
--- NOTE | 2019-03-12 10:56 | BD ---
DEXA BONE DENSITY STUDY: Date: 03/12/19 HISTORY: Menopause. COMPARISON: 11/03/15. FINDINGS: Lumbar Spine: BMD (g/cm2) L1 0.617 T-Score: -3.4 L2 0.721 T-Score: -2.8 L3 0.763 T-Score: -2.9 L4 0.794 T-Score: -2.4 Total 0.731 T-Score: -2.9 Evidence for severe osteoporosis with high risk for fracture. Bone mineral density has decreased 9.4% from the prior study. Left Femoral Neck: 0.547 T-Score: -2.7 Total Femur: 0.793 T-Score: -1.2 Evidence for osteopenia with high risk for fracture. Bone mineral density has increased approximately 0.4% from the prior study. POS: MEHREEN
== END 2019-03-12 07:55 | disposition home or self-care (01) ==
LOC: BICMAMMO 07:54
PROVIDERS: ATTEND Family Medicine
DX: Z13.820 Encounter for screening for osteoporosis (principal); M85.852 Other specified disorders of bone density and structure, left thigh; M81.0 Age-related osteoporosis without current pathological fracture; Z78.0 Asymptomatic menopausal state
CPT/HCPCS: 77080

== ENCOUNTER 2020-02-08 14:10 | Emergency (ER) | payer MEDICARE, MEDICAID ==
--- NOTE | 2020-02-08 14:48 | RAD ---
EXAM: Chest one view: HISTORY: Headache, dizziness, left leg numbness COMPARISON: 03/03/2019 FINDINGS: Heart size: Within normal limits. Lungs: Clear of acute process. No evidence for confluent pneumonia, pleural effusion, acute edema, or pneumothorax, or other signifi cant acute process. IMPRESSION: No significant acute intrathoracic disease. Atherosclerosis of the aorta
--- NOTE | 2020-02-08 14:53 | CT ---
EXAM: Brain CTWithout contrast: HISTORY: Headache dizziness left leg numbness facial numbness 12/10/2016 COMPARISON: None FINDINGS: No focal mass or midline shift. No intra or extra-axial hemorrhage. Sinuses and mastoids are clear of acute process. IMPRESSION: No mass or bleed or other significant acute intracranial process. Stable from prior study.
[2020-02-08 15:41] LABS: #Basophils 0.1 thou/uL (0.0-0.2); #Eosinphils 0.1 thou/uL (0.0-0.7); #Lymphocytes 1.9 thou/uL (1.20-3.40); #Monocytes 0.8 thou/uL (0.11-0.59); #Neutrophils 6.7 thou/uL (1.40-6.50); %Basophils 0.5 % (0.0-1.0); %Eosinophils 0.6 % (0.0-10.0); %Lymphocytes 19.8 % (21.0-51.0); %Monocytes 8.3 % (0.0-10.0); %Neutrophils 70.7 % (42.0-75.0); Hemoglobin 11.2 g/dL (12.0-16.0); Mean Corpuscular HGB CONC 32.8 g/dL (32.0-36.0); Mean Corpuscular Hemoglobin 22.4 pg (27.0-31.0); Mean Corpuscular Volume 68.3 fL (78.0-98.0); Mean Platelet Volume 8.7 fL (7.4-10.4); Platelet Count 321 thou/uL (130-400); RBC Distribution Width 16.9 % (11.5-14.5); Red Blood Cell (RBC) Count 5.02 mill/uL (4.20-5.40); White Blood Cell (WBC) Count 9.5 thou/uL (4.8-10.8)
[2020-02-08 15:45] LABS: INR-International Normal Ratio 0.9; PTT 39.3 sec (22.9-36.1); Prothrombin Time 12.2 sec (12.0-14.7)
[2020-02-08 15:58] LABS: ALT (SGPT) 14 U/L (8-55); AST (SGOT) 23 U/L (5-34); Albumin 4.5 g/dL (3.4-4.8); Alkaline Phosphatase 62 U/L (40-110); Anion Gap 14 mmol/L (10-20); BUN (Urea Nitrogen) 11 mg/dL (9.8-20.1); Bilirubin, Total 0.4 mg/dL (0.2-1.2); Calc. Creatinine Clearance 0 mL/min (70-130); Calcium 10.2 mg/dL (7.8-10.44); Carbon Dioxide 28 mmol/L (23-31); Chloride 96 mmol/L (98-107); Estimated GFR-MDRD 71; Globulin 3.3 g/dL (2.4-3.5); Glucose 98 mg/dL (83-110); Potassium 4.7 mmol/L (3.5-5.1); Protein, Total 7.8 g/dL (6.0-8.3); Sodium 133 mmol/L (136-145)
[2020-02-08 15:58] LABS: Bilirubin Negative (Negative); Blood, Urine Negative (Negative); Clarity Clear (Clear); Glucose, Urine (Dipstick) Normal (Negative); Ketone, Urine Negative (Negative); Leukocyte Negative Leu/uL (Negative); Nitrite Negative (Negative); Protein, Urine (Dipstick) Negative (Neg-Trace); Urobilinogen Normal mg/dL (Less than 2); pH, Urine 6.5 (5.0-9.0)
[2020-02-08 16:24] LABS: MDiff Complete? YES; Microcytosis MODERATE=15-30 cells (100X) (0-5/hpf); Ovalocytes SLIGHT = 2-5 cells (100X) (0-1/hpf); Platelet Morphology Comment Appears Adequate; Polychromasia SLIGHT = 2-3 cells (100X) (0-2/hpf); Schistocytes SLIGHT = 2-5 cells (100X) (0-1/hpf); Target Cells MODERATE= 6-15 cells (100X) (0-1/hpf); Tear Drops SLIGHT = 2-5 cells (100X) (0-1/hpf)
== END 2020-02-08 17:11 | disposition home or self-care (01) ==
LOC: ERS 14:10
DX: R20.2 Paresthesia of skin (principal); I11.0 Hypertensive heart disease with heart failure; I50.9 Heart failure, unspecified; J45.909 Unspecified asthma, uncomplicated; E11.40 Type 2 diabetes mellitus with diabetic neuropathy, unspecified; E11.51 Type 2 diabetes mellitus with diabetic peripheral angiopathy without gangrene; E78.5 Hyperlipidemia, unspecified; M19.90 Unspecified osteoarthritis, unspecified site; F41.9 Anxiety disorder, unspecified; F32.9 Major depressive disorder, single episode, unspecified; Z86.73 Personal history of transient ischemic attack (TIA), and cerebral infarction without residual deficits; Z79.82 Long term (current) use of aspirin; Z79.899 Other long term (current) drug therapy; Z87.891 Personal history of nicotine dependence
CPT/HCPCS: 51701; 70450; 71045; 80053; 81003; 84484; 85025; 85610; 85730; 93005; 94760

== ENCOUNTER 2020-08-30 02:11 | Emergency (ER) | payer MEDICARE, MEDICAID ==
[2020-08-30] MEDS ORDERED: Aspirin Chewable 81 MG TAB ONE (02:25)
[2020-08-30 02:44] LABS: #Basophils 0.1 thou/uL (0.0-0.2); #Eosinphils 0.2 thou/uL (0.0-0.7); #Lymphocytes 2.9 thou/uL (1.20-3.40); #Monocytes 0.9 thou/uL (0.11-0.59); %Basophils 1.1 % (0.0-1.0); %Eosinophils 1.5 % (0.0-10.0); %Lymphocytes 29.1 % (21.0-51.0); %Monocytes 8.9 % (0.0-10.0); %Neutrophils 59.5 % (42.0-75.0); Hemoglobin 9.5 g/dL (12.0-16.0); Mean Corpuscular HGB CONC 32.8 g/dL (32.0-36.0); Mean Corpuscular Hemoglobin 21.6 pg (27.0-31.0); Mean Corpuscular Volume 65.7 fL (78.0-98.0); Mean Platelet Volume 11.5 fL (7.4-10.4); Platelet Count 298 thou/uL (130-400); RBC Distribution Width 17.7 % (11.5-14.5); Red Blood Cell (RBC) Count 4.41 mill/uL (4.20-5.40); White Blood Cell (WBC) Count 10.1 thou/uL (4.8-10.8)
[2020-08-30 03:07] LABS: ALT (SGPT) 11 U/L (8-55); AST (SGOT) 19 U/L (5-34); Alkaline Phosphatase 67 U/L (40-110); Anion Gap 12 mmol/L (10-20); BUN (Urea Nitrogen) 12 mg/dL (9.8-20.1); Bilirubin, Total 0.3 mg/dL (0.2-1.2); CK (CPK) 151 U/L (29-168); Calc. Creatinine Clearance 0 mL/min (70-130); Calcium 8.8 mg/dL (7.8-10.44); Carbon Dioxide 25 mmol/L (23-31); Chloride 99 mmol/L (98-107); Glucose 120 mg/dL (83-110); Potassium 4.2 mmol/L (3.5-5.1); Sodium 132 mmol/L (136-145)
[2020-08-30 04:25] LABS: SARS-CoV-2 NAA Rapid Test Not Detected (NotDetected)
--- NOTE | 2020-08-30 07:54 | RAD ---
EXAM: Single view of the chest HISTORY: Chest pain COMPARISON: 02/26/2020 FINDINGS: Single view of the chest shows a normal sized cardiomediastinal silhouette. Atheroscleroti c calcifications are seen in the aorta. Scattered tiny calcified granulomas are seen in the lung bases. Degenerative changes are seen in the spine. IMPRESSION: No evidence of acute cardiopulmonary disease
== END 2020-08-30 04:28 | disposition short-term general hospital (02) ==
LOC: ERS 02:11
DX: R07.9 Chest pain, unspecified (principal); R00.2 Palpitations; E78.5 Hyperlipidemia, unspecified; I11.0 Hypertensive heart disease with heart failure; I50.9 Heart failure, unspecified; J45.909 Unspecified asthma, uncomplicated; Z86.73 Personal history of transient ischemic attack (TIA), and cerebral infarction without residual deficits; Z87.891 Personal history of nicotine dependence; Z79.82 Long term (current) use of aspirin; Z79.899 Other long term (current) drug therapy
CPT/HCPCS: 0240U; 71045; 80053; 82550; 84484; 85025; 93005

== ENCOUNTER 2020-12-30 19:52 | Observation (INO) | payer MEDICARE, MEDICAID ==
[2020-12-30] MEDS ORDERED: Furosemide 40 MG/4 ML VIAL ONE (20:47)
[2020-12-30] MEDS ORDERED: Nitroglycerin 2% Ointment 1 INCH/1 GM Packet ONE (20:47)
[2020-12-30 20:56] LABS: #Basophils 0.1 thou/uL (0.0-0.2); #Eosinphils 0.1 thou/uL (0.0-0.7); #Lymphocytes 2.3 thou/uL (1.20-3.40); #Monocytes 0.8 thou/uL (0.11-0.59); #Neutrophils 5.1 thou/uL (1.40-6.50); %Basophils 1.3 % (0.0-1.0); %Eosinophils 0.7 % (0.0-10.0); %Lymphocytes 27.4 % (21.0-51.0); %Monocytes 9.4 % (0.0-10.0); %Neutrophils 61.3 % (42.0-75.0); Hemoglobin 10.7 g/dL (12.0-16.0); Mean Corpuscular HGB CONC 33.8 g/dL (32.0-36.0); Mean Corpuscular Hemoglobin 22.7 pg (27.0-31.0); Mean Corpuscular Volume 67.2 fL (78.0-98.0); Mean Platelet Volume 10.5 fL (7.4-10.4); Platelet Count 311 thou/uL (130-400); RBC Distribution Width 16.7 % (11.5-14.5); White Blood Cell (WBC) Count 8.3 thou/uL (4.8-10.8)
[2020-12-30 21:01] LABS: ALT (SGPT) 14 U/L (8-55); AST (SGOT) 21 U/L (5-34); Albumin 4.6 g/dL (3.4-4.8); Alkaline Phosphatase 59 U/L (40-110); Anion Gap 14 mmol/L (10-20); BUN (Urea Nitrogen) 11 mg/dL (9.8-20.1); Bilirubin, Total 0.5 mg/dL (0.2-1.2); CK (CPK) 264 U/L (29-168); Calc. Creatinine Clearance 0 mL/min (70-130); Calcium 9.7 mg/dL (7.8-10.44); Carbon Dioxide 26 mmol/L (23-31); Chloride 100 mmol/L (98-107); Glucose 87 mg/dL (83-110); Lipase 6 U/L (8-78); Potassium 4.7 mmol/L (3.5-5.1); Protein, Total 7.6 g/dL (5.8-8.1); Sodium 135 mmol/L (136-145)
[2020-12-30] MEDS ORDERED: Acetaminophen 325 MG TAB PO PRN (22:52)
[2020-12-30] MEDS ORDERED: hydrALAZINE 25 MG TAB PO SCH (23:00)
[2020-12-30 23:22] VITALS: BMI 27.3
[2020-12-30 23:38] LABS: Troponin I Less than 0.010 ng/mL (< 0.028)
[2020-12-31 02:14] LABS: #Basophils 0.1 thou/uL (0.0-0.2); #Eosinphils 0.1 thou/uL (0.0-0.7); #Neutrophils 5.9 thou/uL (1.40-6.50); %Eosinophils 0.8 % (0.0-10.0); %Lymphocytes 22.5 % (21.0-51.0); %Monocytes 10.4 % (0.0-10.0); %Neutrophils 65.2 % (42.0-75.0); Mean Corpuscular HGB CONC 33.5 g/dL (32.0-36.0); Mean Corpuscular Hemoglobin 22.4 pg (27.0-31.0); Mean Corpuscular Volume 67.1 fL (78.0-98.0); Platelet Count 286 thou/uL (130-400); RBC Distribution Width 16.6 % (11.5-14.5); Red Blood Cell (RBC) Count 4.88 mill/uL (4.20-5.40); White Blood Cell (WBC) Count 9.1 thou/uL (4.8-10.8)
[2020-12-31 02:39] LABS: Troponin I 0.011 ng/mL (< 0.028)
[2020-12-31 03:02] LABS: ALT (SGPT) 12 U/L (8-55); AST (SGOT) 19 U/L (5-34); Albumin 4.3 g/dL (3.4-4.8); Alkaline Phosphatase 52 U/L (40-110); Anion Gap 13 mmol/L (10-20); BUN (Urea Nitrogen) 11 mg/dL (9.8-20.1); Bilirubin, Total 0.7 mg/dL (0.2-1.2); Calc. Creatinine Clearance 53 mL/min (70-130); Calcium 9.8 mg/dL (7.8-10.44); Carbon Dioxide 28 mmol/L (23-31); Cardiac Risk 1.9 (Less than 4.5); Chloride 99 mmol/L (98-107); Cholesterol 177 mg/dl (< 200 Desired); Globulin 3.1 g/dL (2.4-3.5); Glucose 95 mg/dL (83-110); HDL Cholesterol 93 mg/dL (>60 Neg Risk); LDL Cholesterol, Calculated 69 mg/dL; Potassium 3.8 mmol/L (3.5-5.1); Protein, Total 7.4 g/dL (5.8-8.1); Sodium 136 mmol/L (136-145); Triglycerides 76 mg/dL (Less than 150)
[2020-12-31] MEDS ORDERED: hydrALAZINE 25 MG TAB PO SCH ×2 (09:00→15:00)
[2020-12-31] MEDS ORDERED: Enoxaparin Sodium 40 MG/0.4 ML SYRINGE SC SCH (09:00)
[2020-12-31] MEDS ORDERED: Famotidine 20 MG TAB PO SCH (09:00)
[2020-12-31 09:05] LABS: SARS-CoV-2 NAA Rapid Test Not Detected (NotDetected)
[2020-12-31] MEDS ORDERED: Regadenoson 0.4 MG/5 ML SYRINGE ONE (09:21)
[2020-12-31] MEDS ORDERED: Nitroglycerin 0.4 MG TAB (25 Tab Bottle) SL PRN (10:37)
[2020-12-31] MEDS ORDERED: Pregabalin 25 MG CAP PO SCH (15:00)
[2020-12-31 15:52] VITALS: BP 175/77
[2020-12-31 15:55] VITALS: TEMP 98.7
[2020-12-31] MEDS ORDERED: Atorvastatin Calcium 20 MG TAB PO SCH (21:00)
[2020-12-31] MEDS ORDERED: Nortriptyline 10 MG CAP PO SCH (21:00)
[2020-12-31] MEDS ORDERED: Ketotifen Fumarate 0.025% Ophth Soln 5 ml Bottle EA EYE SCH (21:00)
[2021-01-01] MEDS ORDERED: Diltiazem HCl CD 300 mg Capsule PO SCH (09:00)
[2021-01-01] MEDS ORDERED: Aspirin 325 MG TAB PO SCH (09:00)
[2021-01-01] MEDS ORDERED: Montelukast Sodium 10 mg Tablet PO SCH (09:00)
[2021-01-01] MEDS ORDERED: Losartan 25 MG TAB PO SCH (09:00)
[2021-01-01] MEDS ORDERED: Polyethylene Glycol 3350 17 GM Packet PO SCH (09:00)
[2021-01-02] MEDS ORDERED: Furosemide 40 MG TAB PO SCH (09:00)
== END 2020-12-31 17:04 | disposition home or self-care (01) ==
LOC: ERS 19:52 → 2NO 21:37 → INTOOBSV 21:37
PROVIDERS: ADMIT Student in an Organized Health Care Education/Training Program; ATTEND Family Medicine
DX: R07.9 Chest pain, unspecified (principal); J45.909 Unspecified asthma, uncomplicated; I11.0 Hypertensive heart disease with heart failure; I50.9 Heart failure, unspecified; K21.9 Gastro-esophageal reflux disease without esophagitis; E78.5 Hyperlipidemia, unspecified; D64.9 Anemia, unspecified; G62.9 Polyneuropathy, unspecified; I73.9 Peripheral vascular disease, unspecified; I25.10 Atherosclerotic heart disease of native coronary artery without angina pectoris; M19.90 Unspecified osteoarthritis, unspecified site; I25.2 Old myocardial infarction; R09.89 Other specified symptoms and signs involving the circulatory and respiratory systems; Z86.73 Personal history of transient ischemic attack (TIA), and cerebral infarction without residual deficits; Z87.891 Personal history of nicotine dependence; Z79.82 Long term (current) use of aspirin; Z79.83 Long term (current) use of bisphosphonates; Z79.899 Other long term (current) drug therapy; Z88.5 Allergy status to narcotic agent; Z88.8 Allergy status to other drugs, medicaments and biological substances; Z91.041 Radiographic dye allergy status; Z20.822 Contact with and (suspected) exposure to COVID-19
CPT/HCPCS: 71045; 78452; 80053; 80061; 82550; 83690; 83880; 84484 ×3; 85025; 85379; 93005; 93017; 96374; 97139 ×2; 99285; A9500; U0002; U0005; 36415; 84443; J1650; J1940; J2785; U0003

== ENCOUNTER 2021-06-20 10:11 | Outpatient (CLI) | payer MEDICARE, MEDICAID | END 2021-06-20 10:12 | disposition home or self-care (01) | LOC: RAD 10:11 | PROVIDERS: ATTEND Internal Medicine Critical Care Medicine | DX: R06.00 Dyspnea, unspecified (principal) | CPT/HCPCS: 71046 ==

== ENCOUNTER 2021-12-02 01:07 | Inpatient (IN) | payer MEDICARE, MEDICAID ==
[2021-12-02 01:48] LABS: #Eosinphils 0.1 thou/uL (0.0-0.7); #Lymphocytes 1.9 thou/uL (1.20-3.40); #Monocytes 0.9 thou/uL (0.11-0.59); #Neutrophils 6.3 thou/uL (1.40-6.50); %Basophils 0.3 % (0.0-1.0); %Eosinophils 0.8 % (0.0-10.0); %Lymphocytes 20.2 % (21.0-51.0); %Monocytes 10.1 % (0.0-10.0); %Neutrophils 68.6 % (42.0-75.0); Hemoglobin 10.2 g/dL (12.0-16.0); Mean Corpuscular HGB CONC 33.2 g/dL (32.0-36.0); Mean Corpuscular Volume 69.3 fL (78.0-98.0); Mean Platelet Volume 9.1 fL (7.4-10.4); Platelet Count 294 thou/uL (130-400); RBC Distribution Width 16.4 % (11.5-14.5); Red Blood Cell (RBC) Count 4.44 mill/uL (4.20-5.40); White Blood Cell (WBC) Count 9.1 thou/uL (4.8-10.8)
[2021-12-02 02:07] LABS: ALT (SGPT) 11 U/L (8-55); AST (SGOT) 17 U/L (5-34); Alkaline Phosphatase 74 U/L (40-110); Anion Gap 13 mmol/L (10-20); BUN (Urea Nitrogen) 8 mg/dL (9.8-20.1); Bilirubin, Total 0.4 mg/dL (0.2-1.2); Calc. Creatinine Clearance 0 mL/min (70-130); Calcium 8.8 mg/dL (7.8-10.44); Carbon Dioxide 23 mmol/L (23-31); Chloride 100 mmol/L (98-107); Glucose 138 mg/dL (83-110); Potassium 4.1 mmol/L (3.5-5.1); Sodium 132 mmol/L (136-145)
[2021-12-02] MEDS ORDERED: Guaifenesin DM 100-10/5 ML UDCUP PO PRN (03:15)
[2021-12-02] MEDS ORDERED: Ondansetron PF 4 MG/2 ML Vial IVP PRN (03:15)
[2021-12-02] MEDS ORDERED: Bisacodyl 5 MG TAB PO PRN (03:15)
[2021-12-02] MEDS ORDERED: Furosemide 40 MG/4 ML VIAL SLOW IVP SCH ×2 (03:15→03:45)
[2021-12-02] MEDS ORDERED: HumaLOG 300 UNITS/3 ML VIAL SC PRN ×2 (03:15)
[2021-12-02] MEDS ORDERED: Acetaminophen 325 MG TAB PO PRN (03:15)
[2021-12-02] MEDS ORDERED: Dextrose 5% in Water 1,000 ML IV PRN (03:15)
[2021-12-02] MEDS ORDERED: HYDROcodone/Acetaminophen 5/325 mg Tablet PO PRN (03:15)
[2021-12-02] MEDS ORDERED: Dextrose 50% Abboject 50 ML SYRINGE SLOW IVP PRN (03:15)
[2021-12-02] MEDS ORDERED: Albuterol 200 PUFF (6.7GM INHALER) INH PRN (03:35)
[2021-12-02 04:05] LABS: #Basophils 0.1 thou/uL (0.0-0.2); #Lymphocytes 1.5 thou/uL (1.20-3.40); #Monocytes 0.8 thou/uL (0.11-0.59); #Neutrophils 7.1 thou/uL (1.40-6.50); %Basophils 0.6 % (0.0-1.0); %Eosinophils 0.5 % (0.0-10.0); %Monocytes 8.1 % (0.0-10.0); %Neutrophils 74.8 % (42.0-75.0); Hemoglobin 10.1 g/dL (12.0-16.0); Mean Corpuscular HGB CONC 32.8 g/dL (32.0-36.0); Mean Corpuscular Hemoglobin 22.6 pg (27.0-31.0); Mean Platelet Volume 9.2 fL (7.4-10.4); Platelet Count 307 thou/uL (130-400); RBC Distribution Width 16.4 % (11.5-14.5); Red Blood Cell (RBC) Count 4.46 mill/uL (4.20-5.40); White Blood Cell (WBC) Count 9.5 thou/uL (4.8-10.8)
[2021-12-02 04:20] LABS: ALT (SGPT) 11 U/L (8-55); AST (SGOT) 17 U/L (5-34); Albumin 4.1 g/dL (3.4-4.8); Alkaline Phosphatase 76 U/L (40-110); Anion Gap 14 mmol/L (10-20); BUN (Urea Nitrogen) 9 mg/dL (9.8-20.1); Bilirubin, Total 0.3 mg/dL (0.2-1.2); Calc. Creatinine Clearance 0 mL/min (70-130); Calcium 9.2 mg/dL (7.8-10.44); Carbon Dioxide 22 mmol/L (23-31); Chloride 100 mmol/L (98-107); Glucose 132 mg/dL (83-110); Magnesium 2.3 mg/dL (1.6-2.6); Potassium 4.3 mmol/L (3.5-5.1); Protein, Total 7.1 g/dL (5.8-8.1); Sodium 132 mmol/L (136-145)
[2021-12-02 04:26] LABS: Troponin I Less than 0.010 ng/mL (< 0.028)
[2021-12-02 05:07] VITALS: BMI 30.8
[2021-12-02] MEDS: Furosemide 40 MG/4 ML VIAL SLOW IVP SCH ×2 (06:32→15:26)
[2021-12-02] MEDS ORDERED: Ferrous Sulfate 325 MG TAB PO SCH (08:00)
[2021-12-02 08:08] LABS: Troponin I Less than 0.010 ng/mL (< 0.028)
[2021-12-02] MEDS: Enoxaparin Sodium 40 MG/0.4 ML SYRINGE SC SCH (10:02)
[2021-12-02] MEDS: Famotidine 20 MG TAB PO SCH ×2 (10:02→21:50)
[2021-12-02] MEDS: Losartan 25 MG TAB PO SCH (10:02)
[2021-12-02] MEDS: Aspirin 325 MG TAB PO SCH (10:02)
[2021-12-02] MEDS: Diltiazem HCl CD 300 mg Capsule PO SCH (10:03)
[2021-12-02] MEDS: Pregabalin 25 MG CAP PO SCH ×3 (10:03→21:50)
[2021-12-02] MEDS: Ferrous Sulfate 325 MG TAB PO SCH ×2 (10:05→17:01)
[2021-12-02] MEDS ORDERED: Iopamidol 370 76% 100 ML VIAL ONE (10:21)
[2021-12-02 16:23] LABS: SARS-CoV-2 PCR by NAA Not Detected (NotDetected)
[2021-12-02] MEDS: Atorvastatin Calcium 20 MG TAB PO SCH (21:50)
[2021-12-03 05:22] LABS: #Basophils 0.1 thou/uL (0.0-0.2); #Eosinphils 0.1 thou/uL (0.0-0.7); #Lymphocytes 2.4 thou/uL (1.20-3.40); #Monocytes 0.8 thou/uL (0.11-0.59); #Neutrophils 5.9 thou/uL (1.40-6.50); %Basophils 0.6 % (0.0-1.0); %Eosinophils 0.9 % (0.0-10.0); %Lymphocytes 25.6 % (21.0-51.0); %Monocytes 8.4 % (0.0-10.0); %Neutrophils 64.5 % (42.0-75.0); Mean Corpuscular HGB CONC 33.4 g/dL (32.0-36.0); Mean Platelet Volume 9.4 fL (7.4-10.4); Platelet Count 347 thou/uL (130-400); RBC Distribution Width 16.8 % (11.5-14.5); Red Blood Cell (RBC) Count 5.22 mill/uL (4.20-5.40); White Blood Cell (WBC) Count 9.2 thou/uL (4.8-10.8)
[2021-12-03 05:50] LABS: ALT (SGPT) 9 U/L (8-55); AST (SGOT) 16 U/L (5-34); Albumin 4.2 g/dL (3.4-4.8); Alkaline Phosphatase 65 U/L (40-110); Anion Gap 16 mmol/L (10-20); BUN (Urea Nitrogen) 11 mg/dL (9.8-20.1); Bilirubin, Total 0.7 mg/dL (0.2-1.2); Calc. Creatinine Clearance 52 mL/min (70-130); Calcium 9.2 mg/dL (7.8-10.44); Carbon Dioxide 26 mmol/L (23-31); Chloride 97 mmol/L (98-107); Globulin 3.3 g/dL (2.4-3.5); Glucose 107 mg/dL (83-110); Magnesium 2.4 mg/dL (1.6-2.6); Phosphorus 4.6 mg/dL (2.3-4.7); Protein, Total 7.5 g/dL (5.8-8.1); Sodium 135 mmol/L (136-145)
[2021-12-03] MEDS: Furosemide 40 MG/4 ML VIAL SLOW IVP SCH (06:20)
[2021-12-03] MEDS ORDERED: Polyethylene Glycol 3350 17 GM Packet PO PRN (06:27)
[2021-12-03] MEDS: Pregabalin 25 MG CAP PO SCH ×3 (09:55→20:24)
[2021-12-03] MEDS: Aspirin 325 MG TAB PO SCH (09:55)
[2021-12-03] MEDS: Famotidine 20 MG TAB PO SCH ×2 (09:55→20:23)
[2021-12-03] MEDS: Ferrous Sulfate 325 MG TAB PO SCH ×2 (09:55→15:51)
[2021-12-03] MEDS: Diltiazem HCl CD 300 mg Capsule PO SCH (09:55)
[2021-12-03] MEDS: Enoxaparin Sodium 40 MG/0.4 ML SYRINGE SC SCH (09:55)
[2021-12-03] MEDS: Losartan 25 MG TAB PO SCH (09:56)
[2021-12-03] MEDS: Atorvastatin Calcium 20 MG TAB PO SCH (20:23)
[2021-12-04 05:19] LABS: Anion Gap 13 mmol/L (10-20); BUN (Urea Nitrogen) 16 mg/dL (9.8-20.1); Calc. Creatinine Clearance 61 mL/min (70-130); Calcium 8.8 mg/dL (7.8-10.44); Carbon Dioxide 28 mmol/L (23-31); Chloride 97 mmol/L (98-107); Glucose 100 mg/dL (83-110); Potassium 3.9 mmol/L (3.5-5.1); Sodium 134 mmol/L (136-145)
[2021-12-04] MEDS ORDERED: Furosemide 40 MG TAB PO SCH (07:30)
[2021-12-04 10:18] VITALS: BP 143/63; TEMP 97.1
[2021-12-04] MEDS: Diltiazem HCl CD 300 mg Capsule PO SCH (10:29)
[2021-12-04] MEDS: Aspirin 325 MG TAB PO SCH (10:29)
[2021-12-04] MEDS: Ferrous Sulfate 325 MG TAB PO SCH (10:29)
[2021-12-04] MEDS: Famotidine 20 MG TAB PO SCH (10:30)
[2021-12-04] MEDS: Enoxaparin Sodium 40 MG/0.4 ML SYRINGE SC SCH (10:30)
[2021-12-04] MEDS: Losartan 25 MG TAB PO SCH (10:30)
[2021-12-04] MEDS: Pregabalin 25 MG CAP PO SCH (10:31)
== END 2021-12-04 11:59 | disposition home health service (06) | DRG 291 ==
LOC: ERS 01:07 → 2NO 02:46 → OBSVTOIN 12-03 16:30
PROVIDERS: ADMIT Internal Medicine; ATTEND Internal Medicine
DX: I11.0 Hypertensive heart disease with heart failure (principal); I50.33 Acute on chronic diastolic (congestive) heart failure; E87.1 Hypo-osmolality and hyponatremia; Z20.822 Contact with and (suspected) exposure to COVID-19; I25.10 Atherosclerotic heart disease of native coronary artery without angina pectoris; I08.1 Rheumatic disorders of both mitral and tricuspid valves; D50.9 Iron deficiency anemia, unspecified; E66.9 Obesity, unspecified; E11.40 Type 2 diabetes mellitus with diabetic neuropathy, unspecified; D56.9 Thalassemia, unspecified; Z60.2 Problems related to living alone; E78.2 Mixed hyperlipidemia; M81.0 Age-related osteoporosis without current pathological fracture; J44.9 Chronic obstructive pulmonary disease, unspecified; E11.51 Type 2 diabetes mellitus with diabetic peripheral angiopathy without gangrene; M19.90 Unspecified osteoarthritis, unspecified site; F41.9 Anxiety disorder, unspecified; F32.A Depression, unspecified; Z68.30 Body mass index [BMI] 30.0-30.9, adult; Z28.21 Immunization not carried out because of patient refusal; Z88.5 Allergy status to narcotic agent; Z88.8 Allergy status to other drugs, medicaments and biological substances; Z88.6 Allergy status to analgesic agent; Z91.040 Latex allergy status; Z79.899 Other long term (current) drug therapy; Z79.51 Long term (current) use of inhaled steroids; Z79.82 Long term (current) use of aspirin; Z90.49 Acquired absence of other specified parts of digestive tract; Z98.49 Cataract extraction status, unspecified eye; Z87.891 Personal history of nicotine dependence; Z86.73 Personal history of transient ischemic attack (TIA), and cerebral infarction without residual deficits; Z82.49 Family history of ischemic heart disease and other diseases of the circulatory system; Z98.890 Other specified postprocedural states
CPT/HCPCS: 36415; 36416; 71045; 71275; 80048; 80053; 83735; 83880; 84100; 84443; 84484; 85025; 85379; 93005; 93306; 96372; 96374; 96376; G0378; J1650; J1940; Q9967; U0003; U0005

== ENCOUNTER 2022-01-02 10:00 | Inpatient (IN) | payer MEDICARE, MEDICAID ==
[2022-01-02 10:55] LABS: Anion Gap 12 mmol/L (10-20); BUN (Urea Nitrogen) 11 mg/dL (9.8-20.1); Calc. Creatinine Clearance 0 mL/min (70-130); Calcium 9.5 mg/dL (7.8-10.44); Carbon Dioxide 27 mmol/L (23-31); Chloride 101 mmol/L (98-107); Glucose 114 mg/dL (83-110); Potassium 4.3 mmol/L (3.5-5.1); Sodium 136 mmol/L (136-145)
[2022-01-02 11:08] LABS: Hemoglobin 10.1 g/dL (12.0-15.5); Mean Corpuscular HGB CONC 31.9 g/dL (32.0-36.0); Mean Corpuscular Hemoglobin 20.9 pg (27.0-33.0); Mean Corpuscular Volume 65.6 fl (81.6-98.3); Mean Platelet Volume 10.4 fl (7.4-10.4); Platelet Count 323 10x3/uL (150-450); RBC Distribution Width 19.1 % (11.5-14.5); Red Blood Cell (RBC) Count 4.83 10x6/uL (3.90-5.03); White Blood Cell (WBC) Count 9.8 10x3/uL (3.5-10.5)
[2022-01-03] MEDS ORDERED: EPINEPHrine 1 MG/ML AMP ONE (06:43)
[2022-01-03] MEDS ORDERED: Bupivacaine PF 0.5% 30 ML VIAL ONE (06:43)
[2022-01-03] MEDS ORDERED: Protamine Sulfate 50 MG/5 ML VIAL ONE (06:43)
[2022-01-03] MEDS ORDERED: Heparin 5,000 UNITS/ML VIAL ONE (06:43)
[2022-01-03] MEDS ORDERED: ePHEDrine 50 MG/ML VIAL ONE (08:00)
[2022-01-03] MEDS ORDERED: Rocuronium Bromide 10 MG/ML (10ML VIAL) ONE (08:00)
[2022-01-03] MEDS ORDERED: PROPOFOL 200 MG/20 ML VIAL ONE (08:00)
[2022-01-03] MEDS ORDERED: PHENYLEPHRINE-NS 100 MCG/ML 10 ML SYRINGE ONE ×3 (08:00→09:43)
[2022-01-03] MEDS ORDERED: Glycopyrrolate 0.2 MG/ML 5 ML SYRINGE ONE (08:00)
[2022-01-03] MEDS ORDERED: CEFAZOLIN 2 GM VIAL ONE (08:02)
[2022-01-03] MEDS ORDERED: Sodium Chloride 0.9% 100 ML ONE (08:02)
[2022-01-03] MEDS ORDERED: fentaNYL Citrate/PF 100 MCG/2 ML SYRINGE ONE (08:13)
[2022-01-03] MEDS ORDERED: Phenylephrine 40 MG in Sodium Chloride 0.9% 250 ML 250 ML IVPB PRN (13:08)
[2022-01-03] MEDS ORDERED: niCARdipine 25 MG in Sodium Chloride 0.9% 250 ML 250 ML IVPB PRN (13:08)
[2022-01-03] MEDS ORDERED: traMADol HCl 50 MG TAB PO PRN (13:08)
[2022-01-03] MEDS ORDERED: Ondansetron PF 4 MG/2 ML Vial IVP PRN (13:08)
[2022-01-03] MEDS ORDERED: Acetaminophen 325 MG TAB PO PRN (13:08)
[2022-01-03] MEDS ORDERED: Fentanyl 100 MCG/2 ML VIAL SLOW IVP PRN (13:08)
[2022-01-03] MEDS ORDERED: Sodium Chloride 0.9% 1,000 ML IV SCH (13:08)
[2022-01-03 13:22] VITALS: BMI 29.2
[2022-01-03] MEDS: Pregabalin 25 MG CAP PO SCH ×2 (14:36→21:32)
[2022-01-03] MEDS: hydrALAZINE 25 MG TAB PO SCH ×2 (14:36→21:32)
[2022-01-03] MEDS: CEFAZOLIN 2 GM in Sodium Chloride 0.9% 100 ML IVPB SCH ×2 (16:23→23:52)
[2022-01-03 21:33] VITALS: BP 132/98
[2022-01-04 05:13] VITALS: TEMP 98.4
[2022-01-04] MEDS ORDERED: Furosemide 40 MG TAB PO SCH (07:30)
[2022-01-04] MEDS: hydrALAZINE 25 MG TAB PO SCH (07:32)
[2022-01-04] MEDS: CEFAZOLIN 2 GM in Sodium Chloride 0.9% 100 ML IVPB SCH (07:32)
[2022-01-04] MEDS: Pregabalin 25 MG CAP PO SCH (07:34)
[2022-01-04] MEDS ORDERED: Aspirin Chewable 81 MG TAB PO SCH (09:00)
[2022-01-04] MEDS ORDERED: Clopidogrel Bisulfate 75 MG TAB PO SCH (09:00)
[2022-01-04] MEDS ORDERED: Polyethylene Glycol 3350 17 GM Packet PO SCH (09:00)
[2022-01-04] MEDS ORDERED: Diltiazem HCl CD 300 mg Capsule PO SCH (09:00)
== END 2022-01-04 09:03 | disposition home or self-care (01) | DRG 36 ==
LOC: SURG A 01-03 06:30 → CCU 01-03 13:09
PROVIDERS: ADMIT Thoracic Surgery (Cardiothoracic Vascular Surgery); ATTEND Thoracic Surgery (Cardiothoracic Vascular Surgery)
PROC: 037J3DZ Dilation of Left Common Carotid Artery with Intraluminal Device, Percutaneous Approach (ICD-10-PCS; principal; 2022-01-03)
DX: I65.22 Occlusion and stenosis of left carotid artery (principal); Z20.822 Contact with and (suspected) exposure to COVID-19; I70.213 Atherosclerosis of native arteries of extremities with intermittent claudication, bilateral legs; E11.51 Type 2 diabetes mellitus with diabetic peripheral angiopathy without gangrene; J45.909 Unspecified asthma, uncomplicated; K21.9 Gastro-esophageal reflux disease without esophagitis; E11.40 Type 2 diabetes mellitus with diabetic neuropathy, unspecified; I25.10 Atherosclerotic heart disease of native coronary artery without angina pectoris; I50.9 Heart failure, unspecified; I11.0 Hypertensive heart disease with heart failure; Z90.49 Acquired absence of other specified parts of digestive tract; Z98.890 Other specified postprocedural states; Z87.891 Personal history of nicotine dependence; Z91.040 Latex allergy status; Z88.8 Allergy status to other drugs, medicaments and biological substances; Z80.9 Family history of malignant neoplasm, unspecified
CPT/HCPCS: 76000; 80048; 85027; 86850; 86900; 86901; C1725; C1768; C1776; J0171; J0690; J1642; J1644; J2704; J2720; J3490; J7050; S0020; U0003; U0005

== ENCOUNTER 2022-07-05 08:56 | Outpatient (CLI) | payer MEDICARE, MEDICAID | END 2022-07-05 08:57 | disposition home or self-care (01) | LOC: RAD 08:56 | PROVIDERS: ATTEND Internal Medicine Critical Care Medicine | DX: R06.00 Dyspnea, unspecified (principal) | CPT/HCPCS: 71046 ==

== ENCOUNTER 2022-09-23 14:10 | Emergency (ER) | payer MEDICARE, MEDICAID ==
[2022-09-23 14:46] LABS: #Basophils 0.1 thou/uL (0.0-0.2); #Eosinphils 0.1 thou/uL (0.0-0.7); #Lymphocytes 1.9 thou/uL (1.20-3.40); #Monocytes 0.9 thou/uL (0.11-0.59); #Neutrophils 8.4 thou/uL (1.40-6.50); %Basophils 0.7 % (0.0-1.0); %Eosinophils 0.6 % (0.0-10.0); %Monocytes 7.8 % (0.0-10.0); %Neutrophils 73.8 % (42.0-75.0); Mean Corpuscular HGB CONC 32.5 g/dL (32.0-36.0); Mean Corpuscular Hemoglobin 21.9 pg (27.0-31.0); Mean Corpuscular Volume 67.5 fl (78.0-98.0); Mean Platelet Volume 10.1 fL (7.4-10.4); Platelet Count 282 10x3/uL (130-400); RBC Distribution Width 16.5 % (11.5-14.5); Red Blood Cell (RBC) Count 5.02 mill/uL (4.20-5.40); White Blood Cell (WBC) Count 11.3 10x3/uL (4.8-10.8)
[2022-09-23 15:03] LABS: Anisocytosis SLIGHT = 6-15 cells (100X) (0-5/hpf); Hypochromia SLIGHT = 6-15 cells (100X) (0-5/hpf); MDiff Complete? YES; Microcytosis SLIGHT = 6-15 cells (100X) (0-5/hpf); Ovalocytes SLIGHT = 2-5 cells (100X) (0-1/hpf); Platelet Morphology Comment Appears Adequate; Polychromasia SLIGHT = 2-3 cells (100X) (0-2/hpf); Target Cells SLIGHT = 2-5 cells (100X) (0-1/hpf)
[2022-09-23 15:10] LABS: ALT (SGPT) 12 U/L (8-55); AST (SGOT) 21 U/L (5-34); Albumin 4.4 g/dL (3.4-4.8); Alkaline Phosphatase 63 U/L (40-110); Anion Gap 16 mmol/L (10-20); BUN (Urea Nitrogen) 13 mg/dL (9.8-20.1); Bilirubin, Total 0.5 mg/dL (0.2-1.2); Calc. Creatinine Clearance 0 mL/min (70-130); Carbon Dioxide 26 mmol/L (23-31); Chloride 99 mmol/L (98-107); Estimated GFR 69; Globulin 2.8 g/dL (2.4-3.5); Glucose 100 mg/dL (83-110); Potassium 4.7 mmol/L (3.5-5.1); Protein, Total 7.2 g/dL (5.8-8.1); Sodium 136 mmol/L (136-145)
[2022-09-23] MEDS ORDERED: predniSONE 20 MG TAB ONE (17:21)
[2022-09-23] MEDS ORDERED: Dexamethasone 4 MG TAB ONE (17:26)
[2022-09-23 18:24] LABS: SARS-CoV-2 NAA Rapid Test Not Detected (NotDetected)
== END 2022-09-23 18:15 | disposition home or self-care (01) ==
LOC: ERS 14:10
DX: J44.1 Chronic obstructive pulmonary disease with (acute) exacerbation (principal); I11.0 Hypertensive heart disease with heart failure; I50.9 Heart failure, unspecified; E78.5 Hyperlipidemia, unspecified; E11.40 Type 2 diabetes mellitus with diabetic neuropathy, unspecified; Z86.73 Personal history of transient ischemic attack (TIA), and cerebral infarction without residual deficits; Z20.822 Contact with and (suspected) exposure to COVID-19; Z87.891 Personal history of nicotine dependence
CPT/HCPCS: 0240U; 71045; 80053; 83880; 84484; 85025; 93005; 36415; J7512; J8540

== ENCOUNTER 2023-03-31 14:35 | Inpatient (IN) | payer MEDICARE, MEDICAID ==
[~2023-03-31 14:35] MED LIST: Iopamidol-370 76% 500 ML MDV (1 ML CHARGE) ONE
[2023-03-31 15:32] LABS: #Basophils 0.1 thou/uL (0.0-0.2); #Eosinphils 0.1 thou/uL (0.0-0.7); #Monocytes 0.7 thou/uL (0.11-0.59); #Neutrophils 5.8 thou/uL (1.40-6.50); %Basophils 0.6 % (0.0-1.0); %Eosinophils 0.8 % (0.0-10.0); %Lymphocytes 20.8 % (21.0-51.0); %Monocytes 8.7 % (0.0-10.0); %Neutrophils 68.6 % (42.0-75.0); Hematocrit 31.9 % (36.0-47.0); Hemoglobin 10.2 g/dL (12.0-16.0); Mean Corpuscular Volume 65.8 fl (78.0-98.0); Mean Platelet Volume 9.7 fL (7.4-10.4); Platelet Count 318 10x3/uL (130-400); RBC Distribution Width 18.5 % (11.5-14.5); Red Blood Cell (RBC) Count 4.85 mill/uL (4.20-5.40); White Blood Cell (WBC) Count 8.4 10x3/uL (4.8-10.8)
[2023-03-31 15:57] LABS: Burr Cells SLIGHT = 2-5 cells HPF (0-1); CellaVision Operator ID LAB.KB; Microcytosis SLIGHT = 6-15 cells HPF (0-5); Platelet Adequacy Comment Platelets Normal; Polychromasia SLIGHT = 2-3 cells HPF (0-2); Target Cells SLIGHT = 2-5 cells HPF (0-1)
[2023-03-31 16:03] LABS: ALT (SGPT) 11 U/L (8-55); AST (SGOT) 17 U/L (5-34); Albumin 4.3 g/dL (3.4-4.8); Alkaline Phosphatase 63 U/L (40-110); Anion Gap 13 mmol/L (10-20); BUN (Urea Nitrogen) 12 mg/dL (9.8-20.1); Bilirubin, Total 0.4 mg/dL (0.2-1.2); Calc. Creatinine Clearance 0 mL/min (70-130); Calcium 9.7 mg/dL (7.8-10.44); Carbon Dioxide 27 mmol/L (23-31); Chloride 96 mmol/L (98-107); Estimated GFR 75; Globulin 3.2 g/dL (2.4-3.5); Glucose 87 mg/dL (83-110); Potassium 4.5 mmol/L (3.5-5.1); Protein, Total 7.5 g/dL (5.8-8.1); Sodium 131 mmol/L (136-145); Troponin I Less than 0.010 ng/mL (< 0.028)
[2023-03-31] MEDS ORDERED: hydrALAZINE 25 MG TAB ONE (19:55)
[2023-03-31 21:35] LABS: Troponin I 0.017 ng/mL (< 0.028)
[2023-03-31 22:21] VITALS: BMI 31.3
[2023-03-31] MEDS ORDERED: Acetaminophen 325 MG TAB PO PRN (22:34)
[2023-03-31] MEDS ORDERED: hydrALAZINE 20 MG/ML VIAL SLOW IVP PRN (22:35)
[2023-03-31] MEDS ORDERED: Acetaminophen 325 MG TAB PO SCH (22:45)
[2023-03-31] MEDS ORDERED: hydrALAZINE 25 MG TAB PO SCH (22:45)
[2023-03-31] MEDS ORDERED: Senokot S 8.6-50 MG TAB PO PRN (22:53)
[2023-03-31] MEDS ORDERED: Ondansetron ODT 4 MG TAB PO PRN (22:53)
[2023-04-01 00:20] LABS: Troponin I 0.016 ng/mL (< 0.028)
[2023-04-01 04:12] LABS: #Basophils 0.1 thou/uL (0.0-0.2); #Eosinphils 0.1 thou/uL (0.0-0.7); #Monocytes 0.8 thou/uL (0.11-0.59); #Neutrophils 6.5 thou/uL (1.40-6.50); %Basophils 0.9 % (0.0-1.0); %Eosinophils 0.7 % (0.0-10.0); %Lymphocytes 19.6 % (21.0-51.0); %Monocytes 8.8 % (0.0-10.0); %Neutrophils 69.8 % (42.0-75.0); Hematocrit 33.5 % (36.0-47.0); Hemoglobin 10.7 g/dL (12.0-16.0); Mean Corpuscular HGB CONC 31.9 g/dL (32.0-36.0); Mean Corpuscular Hemoglobin 21.1 pg (27.0-31.0); Mean Corpuscular Volume 66.1 fl (78.0-98.0); Mean Platelet Volume 10.6 fL (7.4-10.4); Platelet Count 330 10x3/uL (130-400); RBC Distribution Width 18.9 % (11.5-14.5); Red Blood Cell (RBC) Count 5.07 mill/uL (4.20-5.40); White Blood Cell (WBC) Count 9.4 10x3/uL (4.8-10.8)
[2023-04-01 04:35] LABS: Anion Gap 10 mmol/L (10-20); BUN (Urea Nitrogen) 8 mg/dL (9.8-20.1); Calc. Creatinine Clearance 69 mL/min (70-130); Calcium 9.4 mg/dL (7.8-10.44); Carbon Dioxide 29 mmol/L (23-31); Chloride 102 mmol/L (98-107); Estimated GFR 83; Glucose 94 mg/dL (83-110); Sodium 137 mmol/L (136-145)
[2023-04-01] MEDS ORDERED: Meclizine HCl 12.5 MG TAB PO PRN (07:36)
[2023-04-01] MEDS: dilTIAZem CD 300 MG CAP PO SCH (08:34)
[2023-04-01] MEDS: Famotidine 20 MG TAB PO SCH ×2 (08:35→21:30)
[2023-04-01] MEDS: hydrALAZINE 25 MG TAB PO SCH ×6 (08:35→21:30)
[2023-04-01] MEDS: Pregabalin 25 MG CAP PO SCH ×3 (08:35→21:30)
[2023-04-01] MEDS ORDERED: Alendronate Sodium 70 mg Tablet PO SCH (09:00)
[2023-04-01] MEDS: Mometasone 200 MCG/Formoterol 5 MCG 120 PUFF INHALER INH SCH (18:51)
[2023-04-01] MEDS: Losartan 25 MG TAB PO SCH (21:30)
[2023-04-01] MEDS: Montelukast Sodium 10 mg Tablet PO SCH (21:30)
[2023-04-01] MEDS: Atorvastatin Calcium 20 MG TAB PO SCH (21:31)
[2023-04-02] MEDS: Mometasone 200 MCG/Formoterol 5 MCG 120 PUFF INHALER INH SCH ×2 (07:05→21:44)
[2023-04-02] MEDS: dilTIAZem CD 300 MG CAP PO SCH (08:16)
[2023-04-02] MEDS: Pregabalin 25 MG CAP PO SCH ×3 (08:16→21:17)
[2023-04-02] MEDS: Famotidine 20 MG TAB PO SCH (08:16)
[2023-04-02] MEDS: hydrALAZINE 25 MG TAB PO SCH ×3 (08:16→21:19)
[2023-04-02] MEDS ORDERED: Regadenoson 0.4 MG/5 ML SYRINGE ONE (09:32)
[2023-04-02] MEDS: Furosemide 40 MG TAB PO SCH (12:39)
[2023-04-02] MEDS ORDERED: Loratadine 10 MG TAB PO PRN (16:12)
[2023-04-02] MEDS ORDERED: Nitroglycerin 0.4 MG TAB (25 Tab Bottle) SL PRN (16:12)
[2023-04-02] MEDS ORDERED: Nortriptyline 10 MG CAP PO SCH (21:00)
[2023-04-02] MEDS ORDERED: Ketotifen Fumarate 0.025% Ophth Soln 5 ml Bottle EA EYE PRN (21:00)
[2023-04-02] MEDS: Atorvastatin Calcium 20 MG TAB PO SCH (21:18)
[2023-04-02] MEDS: Losartan 25 MG TAB PO SCH (21:18)
[2023-04-02] MEDS: Montelukast Sodium 10 mg Tablet PO SCH (21:19)
[2023-04-02] MEDS ORDERED: Ipratropium/Albuterol 3 ML NEB NEB PRN (23:48)
[2023-04-03 05:11] LABS: Anion Gap 12 mmol/L (10-20); BUN (Urea Nitrogen) 13 mg/dL (9.8-20.1); Calc. Creatinine Clearance 61 mL/min (70-130); Calcium 9.3 mg/dL (7.8-10.44); Carbon Dioxide 25 mmol/L (23-31); Chloride 101 mmol/L (98-107); Estimated GFR 71; Glucose 91 mg/dL (83-110); Potassium 3.6 mmol/L (3.5-5.1); Sodium 134 mmol/L (136-145)
[2023-04-03] MEDS: Mometasone 200 MCG/Formoterol 5 MCG 120 PUFF INHALER INH SCH (07:05)
[2023-04-03] MEDS: Furosemide 40 MG TAB PO SCH (08:31)
[2023-04-03] MEDS: hydrALAZINE 25 MG TAB PO SCH (08:31)
[2023-04-03] MEDS: dilTIAZem CD 300 MG CAP PO SCH (08:31)
[2023-04-03] MEDS ORDERED: Aspirin 325 MG TAB PO SCH (09:00)
[2023-04-03] MEDS ORDERED: Polyethylene Glycol 3350 17 GM Packet PO SCH (09:00)
[2023-04-03 13:07] VITALS: BP 148/67; TEMP 98.2
== END 2023-04-03 12:45 | disposition home health service (06) | DRG 92 ==
LOC: ERS 14:35 → 2NO 20:42 → OBSVTOIN 04-01 12:34
PROVIDERS: ADMIT Student in an Organized Health Care Education/Training Program; ATTEND Family Medicine
DX: R20.2 Paresthesia of skin (principal); I50.32 Chronic diastolic (congestive) heart failure; R07.89 Other chest pain; I11.0 Hypertensive heart disease with heart failure; E11.42 Type 2 diabetes mellitus with diabetic polyneuropathy; D64.9 Anemia, unspecified; M79.604 Pain in right leg; F03.90 Unspecified dementia, unspecified severity, without behavioral disturbance, psychotic disturbance, mood disturbance, and anxiety; J44.9 Chronic obstructive pulmonary disease, unspecified; K59.00 Constipation, unspecified; M81.0 Age-related osteoporosis without current pathological fracture; E78.5 Hyperlipidemia, unspecified; I65.22 Occlusion and stenosis of left carotid artery; Z91.040 Latex allergy status; Z88.8 Allergy status to other drugs, medicaments and biological substances; Z79.82 Long term (current) use of aspirin; Z79.899 Other long term (current) drug therapy; Z90.49 Acquired absence of other specified parts of digestive tract; Z98.49 Cataract extraction status, unspecified eye; Z98.890 Other specified postprocedural states; Z91.148 Patient's other noncompliance with medication regimen for other reason; Z88.6 Allergy status to analgesic agent; Z79.02 Long term (current) use of antithrombotics/antiplatelets; F32.A Depression, unspecified; F41.9 Anxiety disorder, unspecified; Z87.891 Personal history of nicotine dependence; E11.51 Type 2 diabetes mellitus with diabetic peripheral angiopathy without gangrene; M19.90 Unspecified osteoarthritis, unspecified site; K21.9 Gastro-esophageal reflux disease without esophagitis
CPT/HCPCS: 36415; 36416; 70450; 71045; 71275; 78452; 80048; 80053; 83880; 84484; 85025; 85379; 93005; 93017; 93880; A9500; J1650; J2785; Q9967

== ENCOUNTER 2023-07-04 09:20 | Outpatient (CLI) | payer MEDICARE, MEDICAID | END 2023-07-04 09:21 | disposition home or self-care (01) | LOC: RAD 09:20 | PROVIDERS: ATTEND Internal Medicine Critical Care Medicine | DX: R06.00 Dyspnea, unspecified (principal); I51.7 Cardiomegaly; R09.89 Other specified symptoms and signs involving the circulatory and respiratory systems | CPT/HCPCS: 71046 ==

== ENCOUNTER 2024-07-01 08:43 | Outpatient (CLI) | payer MEDICARE, MEDICAID | END 2024-07-01 08:44 | disposition home or self-care (01) | LOC: RAD 08:43 | PROVIDERS: ATTEND Internal Medicine Critical Care Medicine | DX: R06.00 Dyspnea, unspecified (principal); I51.7 Cardiomegaly | CPT/HCPCS: 71046 ==

== ENCOUNTER 2025-03-18 07:22 | Inpatient (IN) | payer MEDICARE, MEDICAID ==
[2025-03-18 09:13] LABS: Bacteria/HPF None Seen HPF (None Seen); CAUTI Indications for Culture Alt mental st,lethar; Glucose, Urine (Dipstick) Normal (Negative); Leukocyte Negative Leu/uL (Negative); Protein, Urine (Dipstick) Negative (Neg-Trace); RBC/HPF None Seen HPF (0-3); Specific Gravity, Urine 1.006 (1.002-1.036); WBC/HPF 0-3 HPF (0-3)
[2025-03-18 09:24] LABS: INR-International Normal Ratio 1.0; PTT 54.1 sec (22.9-36.1); Prothrombin Time 13.3 sec (12.0-14.7)
[2025-03-18 09:25] LABS: Urine Culture Reflex No No
[2025-03-18 09:25] LABS: ALT (SGPT) 12 U/L (Less than 34); AST (SGOT) 34 U/L (11-34); Albumin 3.9 g/dL (3.1-4.5); Alkaline Phosphatase 94 U/L (40-110); Anion Gap 15 mmol/L (10-20); BUN (Urea Nitrogen) 11 mg/dL (9.8-20.1); Bilirubin, Total 0.4 mg/dL (0.3-1.2); Calc. Creatinine Clearance 0 mL/min (70-130); Calcium 9.1 mg/dL (7.8-10.44); Carbon Dioxide 26 mmol/L (23-31); Chloride 101 mmol/L (98-107); D-Dimer Test 1.64 mcg/mL (0.27-0.43); Globulin 3.8 g/dL (2.4-3.5); Glucose 103 mg/dL (83-110); Magnesium 2.5 mg/dL (1.6-2.6); Potassium 4.9 mmol/L (3.5-5.1); Sodium 137 mmol/L (136-145)
[2025-03-18 09:30] LABS: #Basophils 0.07 10x3/uL (0.0-0.2); #Eosinophils 0.27 10x3/uL (0.0-0.7); #Monocytes 0.94 10x3/uL (0.11-0.59); #Neutrophils 9.13 10x3/uL (1.40-6.50); %Basophils 0.6 % (0.0-1.0); %Eosinophils 2.2 % (0.0-10.0); %Lymphocytes 12.9 % (21.0-51.0); %Monocytes 7.8 % (0.0-10.0); %Neutrophils 75.8 % (42.0-75.0); Hematocrit 30.9 % (36.0-47.0); Hemoglobin 9.4 g/dL (12.0-16.0); Mean Corpuscular Hemoglobin 20.0 pg (27.0-31.0); Mean Corpuscular Volume 65.6 fL (78.0-98.0); Platelet Count 332 10x3/uL (130-400); Red Blood Cell (RBC) Count 4.71 mill/uL (4.20-5.40); White Blood Cell (WBC) Count 12.05 10x3/uL (4.8-10.8)
[2025-03-18 10:47] LABS: Anisocytosis SLIGHT = 6-15 cells HPF (0-5); Microcytosis SLIGHT = 6-15 cells HPF (0-5); Platelet Adequacy Comment Platelets Normal; Polychromasia SLIGHT = 2-3 cells HPF (0-2); Schistocytes SLIGHT = 2-5 cells HPF (0-1); Target Cells SLIGHT = 2-5 cells HPF (0-1)
[2025-03-18] MEDS ORDERED: Iopamidol-370 76% 500 ML MDV (1 ML CHARGE) ONE (12:51)
[2025-03-18] MEDS ORDERED: Bisacodyl 10 MG SUPP PR PRN (14:44)
[2025-03-18] MEDS ORDERED: Melatonin 3 MG TAB PO PRN (14:44)
[2025-03-18] MEDS ORDERED: Acetaminophen 325 MG TAB PO PRN (14:44)
[2025-03-18] MEDS ORDERED: Ondansetron PF 4 MG/2 ML Vial IVP PRN (14:44)
[2025-03-18] MEDS ORDERED: Senokot S 8.6-50 MG TAB PO PRN (14:44)
[2025-03-18] MEDS ORDERED: Furosemide 40 MG (4 mL) VIAL ONE (14:44)
[2025-03-18] MEDS ORDERED: Glucagon 1 MG/ML KIT IM PRN (15:13)
[2025-03-18] MEDS ORDERED: Dextrose 50% Abboject 50 ML SYRINGE SLOW IVP PRN (15:13)
[2025-03-18 17:22] VITALS: BMI 29.7
[2025-03-18] MEDS: Aspirin 325 MG TAB PO SCH (18:36)
[2025-03-18 19:39] LABS: Influenza A by NAA Not Detected (NotDetected); Influenza B by NAA Not Detected (NotDetected); SARS-CoV-2 NAA Rapid Test Not Detected (NotDetected)
[2025-03-19 05:13] LABS: #Basophils 0.08 10x3/uL (0.0-0.2); #Eosinophils 0.27 10x3/uL (0.0-0.7); #Monocytes 0.89 10x3/uL (0.11-0.59); #Neutrophils 7.29 10x3/uL (1.40-6.50); %Basophils 0.7 % (0.0-1.0); %Eosinophils 2.5 % (0.0-10.0); %Lymphocytes 20.1 % (21.0-51.0); %Monocytes 8.3 % (0.0-10.0); %Neutrophils 67.9 % (42.0-75.0); Hematocrit 34.3 % (36.0-47.0); Hemoglobin 10.6 g/dL (12.0-16.0); Mean Corpuscular Hemoglobin 20.6 pg (27.0-31.0); Mean Corpuscular Volume 66.6 fL (78.0-98.0); Platelet Count 348 10x3/uL (130-400); Red Blood Cell (RBC) Count 5.15 mill/uL (4.20-5.40); White Blood Cell (WBC) Count 10.74 10x3/uL (4.8-10.8)
[2025-03-19 05:32] LABS: Anion Gap 9 mmol/L (10-20); BUN (Urea Nitrogen) 8 mg/dL (9.8-20.1); Calc. Creatinine Clearance 66 mL/min (70-130); Calcium 9.2 mg/dL (7.8-10.44); Carbon Dioxide 26 mmol/L (23-31); Cardiac Risk 2.4 (Less than 4.5); Chloride 105 mmol/L (98-107); Cholesterol 156 mg/dl (< 200 Desired); Glucose 98 mg/dL (83-110); HDL Cholesterol 66 mg/dL (>60 Neg Risk); Iron 39 ug/dL (50-170); Iron Binding Capacity, Total 216 mcg/dL (265-497); LDL Cholesterol, Calculated 73 mg/dL; Potassium 4.3 mmol/L (3.5-5.1); Sodium 136 mmol/L (136-145); Triglycerides 83 mg/dL (Less than 150)
[2025-03-19 05:51] LABS: Ferritin 419.6 ng/mL (10-291); Thyroid Stimulating Hormone 2.3258 uIU/mL (0.35-4.94); Vitamin B12 715.0 pg/mL (211-911)
[2025-03-19] MEDS: Enoxaparin 40 MG (0.4 mL) SYRINGE SC SCH (08:55)
[2025-03-19] MEDS: Furosemide 40 MG (4 mL) VIAL SLOW IVP SCH (08:56)
[2025-03-19] MEDS ORDERED: Nitroglycerin 0.4 MG TAB (25 Tab Bottle) SL PRN (14:29)
[2025-03-19] MEDS: Pregabalin 50 MG CAP PO SCH (16:06)
[2025-03-19] MEDS: Calcium Carbonate 600 MG + Vit D TAB PO SCH (21:08)
[2025-03-19] MEDS: Losartan 25 MG TAB PO SCH (21:08)
[2025-03-19] MEDS: Ketotifen 0.035% Ophth Soln 5 ml Bottle EA EYE SCH (21:09)
[2025-03-20 05:36] LABS: Anion Gap 15 mmol/L (10-20); BUN (Urea Nitrogen) 11 mg/dL (9.8-20.1); Calc. Creatinine Clearance 74 mL/min (70-130); Calcium 8.9 mg/dL (7.8-10.44); Carbon Dioxide 25 mmol/L (23-31); Chloride 100 mmol/L (98-107); Glucose 103 mg/dL (83-110); Potassium 3.7 mmol/L (3.5-5.1); Sodium 136 mmol/L (136-145)
[2025-03-20] MEDS: NIFEdipine XL 30 MG ER.TAB PO SCH (08:29)
[2025-03-20] MEDS ORDERED: Estradiol 0.01% Vaginal Cream 42.5 gm Tube VAG SCH (09:00)
[2025-03-20] MEDS: Aspirin 325 MG TAB PO SCH (09:21)
[2025-03-20 12:02] VITALS: TEMP 98.7
[2025-03-20 12:38] VITALS: BP 133/54
== END 2025-03-20 14:45 | disposition home or self-care (01) | DRG 291 ==
LOC: ERS 07:22 → OBS 16:08
PROVIDERS: ADMIT Family Medicine; ATTEND Hospitalist
DX: I11.0 Hypertensive heart disease with heart failure (principal); I50.33 Acute on chronic diastolic (congestive) heart failure; J96.01 Acute respiratory failure with hypoxia; J44.9 Chronic obstructive pulmonary disease, unspecified; R42 Dizziness and giddiness; I25.10 Atherosclerotic heart disease of native coronary artery without angina pectoris; E78.5 Hyperlipidemia, unspecified; E11.40 Type 2 diabetes mellitus with diabetic neuropathy, unspecified; D56.9 Thalassemia, unspecified; K21.9 Gastro-esophageal reflux disease without esophagitis; Z88.8 Allergy status to other drugs, medicaments and biological substances; Z91.048 Other nonmedicinal substance allergy status; Z79.899 Other long term (current) drug therapy; R29.898 Other symptoms and signs involving the musculoskeletal system; Z91.040 Latex allergy status; Z88.5 Allergy status to narcotic agent; I08.1 Rheumatic disorders of both mitral and tricuspid valves; Z86.73 Personal history of transient ischemic attack (TIA), and cerebral infarction without residual deficits; E11.51 Type 2 diabetes mellitus with diabetic peripheral angiopathy without gangrene; Z87.891 Personal history of nicotine dependence; Z98.890 Other specified postprocedural states; Z98.49 Cataract extraction status, unspecified eye; Z82.49 Family history of ischemic heart disease and other diseases of the circulatory system; F03.90 Unspecified dementia, unspecified severity, without behavioral disturbance, psychotic disturbance, mood disturbance, and anxiety
CPT/HCPCS: 36415; 36416; 70496; 70498; 70551; 71045; 71275; 80048; 80053; 80061; 81001; 82607; 82728; 83036; 83540; 83550; 83735; 83880; 84443; 84484; 85025; 85379; 85610; 85730; 87636; 93005; 93306; 93798; 94640; 96374; J1650; J1940; J7620; Q9967

== ENCOUNTER 2025-05-05 01:17 | Inpatient (IN) | payer MEDICARE, MEDICAID ==
[2025-05-05 01:53] LABS: Hematocrit 33.4 % (36.0-47.0); Hemoglobin 10.2 g/dL (12.0-16.0); Mean Corpuscular Hemoglobin 20.0 pg (27.0-31.0); Mean Corpuscular Volume 65.4 fL (78.0-98.0); Platelet Count 317 10x3/uL (130-400); Red Blood Cell (RBC) Count 5.11 mill/uL (4.20-5.40); White Blood Cell (WBC) Count 12.70 10x3/uL (4.8-10.8)
[2025-05-05 02:02] LABS: ALT (SGPT) 10 U/L (Less than 34); AST (SGOT) 35 U/L (11-34); Albumin 3.8 g/dL (3.1-4.5); Alkaline Phosphatase 80 U/L (40-110); Anion Gap 13 mmol/L (10-20); BUN (Urea Nitrogen) 12 mg/dL (9.8-20.1); Bilirubin, Total 0.4 mg/dL (0.3-1.2); Calc. Creatinine Clearance 0 mL/min (70-130); Calcium 9.0 mg/dL (7.8-10.44); Carbon Dioxide 23 mmol/L (23-31); Chloride 101 mmol/L (98-107); Globulin 4.0 g/dL (2.4-3.5); Glucose 104 mg/dL (83-110); Lipase 12 U/L (8-78); Magnesium 2.7 mg/dL (1.6-2.6); Potassium 5.2 mmol/L (3.5-5.1); Sodium 132 mmol/L (136-145)
[2025-05-05 02:10] LABS: Microcytosis SLIGHT = 6-15 cells HPF (0-5); Platelet Adequacy Comment Platelets Normal; Polychromasia SLIGHT = 2-3 cells HPF (0-2); Target Cells SLIGHT = 2-5 cells HPF (0-1)
[2025-05-05] MEDS ORDERED: CALCIUM GLUC 1 GM/NS 50 ML IV Bag ONE (02:47)
[2025-05-05 03:14] LABS: Free T4 (Free Thyroxine) 1.04 ng/dL (0.70-1.48); Thyroid Stimulating Hormone 3.1368 uIU/mL (0.35-4.94)
[2025-05-05] MEDS ORDERED: Ondansetron PF 4 MG/2 ML Vial IVP PRN (05:52)
[2025-05-05] MEDS ORDERED: Acetaminophen 325 MG TAB PO PRN (05:52)
[2025-05-05 06:07] VITALS: BMI 30.4
[2025-05-05] MEDS ORDERED: Iopamidol-370 76% 500 ML MDV (1 ML CHARGE) ONE (10:09)
[2025-05-05] MEDS: Enoxaparin 30 MG (0.3 mL) SYRINGE SC SCH (10:34)
[2025-05-05] MEDS: NIFEdipine XL 30 MG ER.TAB PO SCH ×2 (10:34→11:18)
[2025-05-05] MEDS: LOKELMA 10 GM PACKET PO SCH (10:35)
[2025-05-05] MEDS ORDERED: Melatonin 3 MG TAB PO PRN (20:41)
[2025-05-05] MEDS ORDERED: Senokot S 8.6-50 MG TAB PO PRN (20:41)
[2025-05-05] MEDS: Losartan 25 MG TAB PO SCH (21:14)
[2025-05-06 04:30] LABS: #Basophils 0.07 10x3/uL (0.0-0.2); #Eosinophils 0.18 10x3/uL (0.0-0.7); #Monocytes 0.83 10x3/uL (0.11-0.59); #Neutrophils 6.77 10x3/uL (1.40-6.50); %Basophils 0.7 % (0.0-1.0); %Eosinophils 1.8 % (0.0-10.0); %Lymphocytes 19.3 % (21.0-51.0); %Monocytes 8.5 % (0.0-10.0); %Neutrophils 69.4 % (42.0-75.0); Hematocrit 36.0 % (36.0-47.0); Hemoglobin 11.3 g/dL (12.0-16.0); Mean Corpuscular Hemoglobin 20.3 pg (27.0-31.0); Mean Corpuscular Volume 64.5 fL (78.0-98.0); Platelet Count 335 10x3/uL (130-400); Red Blood Cell (RBC) Count 5.58 mill/uL (4.20-5.40); White Blood Cell (WBC) Count 9.77 10x3/uL (4.8-10.8)
[2025-05-06 04:34] LABS: Anion Gap 12 mmol/L (10-20); BUN (Urea Nitrogen) 8 mg/dL (9.8-20.1); Calc. Creatinine Clearance 67 mL/min (70-130); Calcium 9.6 mg/dL (7.8-10.44); Carbon Dioxide 26 mmol/L (23-31); Chloride 105 mmol/L (98-107); Glucose 96 mg/dL (83-110); Potassium 4.0 mmol/L (3.5-5.1); Sodium 139 mmol/L (136-145)
[2025-05-06] MEDS: Losartan 25 MG TAB PO SCH (23:00)
[2025-05-07] MEDS: Enoxaparin 40 MG (0.4 mL) SYRINGE SC SCH (08:23)
[2025-05-07] MEDS: Pregabalin 25 MG CAP PO SCH (12:49)
[2025-05-07 16:24] VITALS: BP 148/65; TEMP 99.1
== END 2025-05-07 18:45 | disposition home health service (06) | DRG 641 ==
LOC: ERS 01:17 → 2SE 04:59 → OBSVTOIN 05-06 13:41
PROVIDERS: ADMIT Internal Medicine; ATTEND Student in an Organized Health Care Education/Training Program
DX: E87.5 Hyperkalemia (principal); I50.32 Chronic diastolic (congestive) heart failure; J44.9 Chronic obstructive pulmonary disease, unspecified; E83.42 Hypomagnesemia; E11.40 Type 2 diabetes mellitus with diabetic neuropathy, unspecified; F41.9 Anxiety disorder, unspecified; F32.A Depression, unspecified; I11.0 Hypertensive heart disease with heart failure; J45.909 Unspecified asthma, uncomplicated; I73.9 Peripheral vascular disease, unspecified; Z88.8 Allergy status to other drugs, medicaments and biological substances; Z88.5 Allergy status to narcotic agent; Z91.040 Latex allergy status; Z79.899 Other long term (current) drug therapy; Z79.82 Long term (current) use of aspirin; Z98.41 Cataract extraction status, right eye; Z98.42 Cataract extraction status, left eye; Z98.890 Other specified postprocedural states; Z90.49 Acquired absence of other specified parts of digestive tract
CPT/HCPCS: 36415; 71275; 80048; 80053; 83690; 83735; 83880; 84439; 84443; 84484; 85025; 85379; 93005; 94640; 96365; 96366; 96372; 96375; 96376; G0378; J0613; J1650; J7030; J7626; Q9967